=== PATIENT | male | born 1945 | race Caucasian/White ===

== ENCOUNTER 2017-07-23 23:34 | Inpatient (IN) | payer MEDICARE ==
[~2017-07-23] VITALS: Ht 165.1 cm; Wt 103.5 kg
[2017-07-24] MEDS ORDERED: ONDANSETRON HCL 4 MG/2 ML VIAL IV PUSH PRN (04:15)
[2017-07-24] MEDS ORDERED: MORPHINE SULFATE 2 MG/ML SYRINGE IV PUSH PRN (04:15)
[2017-07-24 08:00] VITALS: BP 135/73; PULSE 76; RESP 17; TEMP 98.6; O2SAT 94
[2017-07-24 09:11] LABS: AUTOMATED NEUTROPHIL # 9.9 TH/MM3 (1.8-7.7); BASOPHIL % 0.3 % (0.0-2.0); EOSINOPHIL % 0.2 % (0.0-4.0); HEMATOCRIT 27.6 % (39.0-51.0); HEMOGLOBIN 9.3 GM/DL (13.0-17.0); LYMPH % 6.3 % (9.0-44.0); LYMPHOCYTE # 0.8 TH/MM3 (1.0-4.8); MEAN CELL VOLUME 90.7 FL (80.0-100.0); MEAN CORPUSCULAR HEMOGLOBIN 30.4 PG (27.0-34.0); MEAN CORPUSCULAR HGB CONC 33.6 % (32.0-36.0); MEAN PLATELET VOLUME 7.2 FL (7.0-11.0); MONO % 16.3 % (0.0-8.0); MONOCYTE # 2.1 TH/MM3 (0-0.9); NEUT % 76.9 % (16.0-70.0); PLATELET COUNT 316 TH/MM3 (150-450); RED BLOOD COUNT 3.05 MIL/MM3 (4.50-5.90); WHITE BLOOD COUNT 12.9 TH/MM3 (4.0-11.0)
--- NOTE | 2017-07-24 09:16 | HHI.HP ---
HPI Service [facility] Hospitalists Primary Care Physician Edmund Sarmiento MD Admission Diagnosis Iliacus and psoas hematoma Chief Complaint: Right hip pain Travel History International Travel<30 Days: No Contact w/Intl Traveler <30 Da: No History of Present Illness Mr. Navarrete is a 71 y/o WM with hyperlipidemia, HTN, hx of CAD, hx of CVA on chronic anticoagulation with Coumadin, hypothyroidism. Pt was transferred from [facility] on 07/24/17 with a right iliacus and right psoas muscle hematoma. According to the pt and his the pt has complained of right hip pain for some time but more recently, within the last week or so, this has been significantly worsening. He reportedly had an outpt Xray of right hip reportedly fine. Last he had increased pain in the right hip and called ortho and was given a prescription for Hydrocodone which provided no relief. Pt went to the ED at [facility] on 07/19/17 and was reportedly given pain meds and sent home. Later that evening he complained of his right leg going numb. After that began he was trying to transfer from the bed side commode to the bed and he slid down the side of the bed to the floor. Pts noted that he started to develop bruising on the right flank after that fall. The pts pain increased in the right hip the following day and he went back to the ED at [facility] on 07/21/17. In the ED the pt was evaluated with MRI Lumbar Spine without contrast (07/21/17) which noted an abnormal exam, with the paraspinal signal alteration on the right side with involvement of the right iliacus muscle belly as well as the right psoas muscle belly nonspecific but possibly reflecting evolving active acute to subacute paraspinal abscesses, although the possibility of partial visualization of spontaneous evolving active to subacute retroperitoneal hematoma also a consideration from an imaging standpoint. Pt was admitted. CT Abd/Pelvis with IV Contrast (07/21/17) noted findings are consistent with a large right iliacus hemorrhage with a fluid /fluid level. No active extravasation is seen. There is extension into the retroperitoneum more on the right than the left and some extension into the groin and upper thigh. The iliacus hemorrhage displaces the right psoas muscle. There is some hemorrhage extending superiorly along the posterior border of the psoas muscle. Maximum cross-sectional measurement of the iliacus hemorrhage is 7.1 x 8.7cm with a craniocaudad dimension of 13.3cm, not including the groin component. His tells me that when he went back to the ED the second time his INR was reportedly 7. Pt reportedly received a transfusion of 4 units FFP and a couple units of PRBCs as his Hgb went down to 7.7 at [facility]. Pt Coumadin was increased to 5mg po daily in May 2017 for subtherapeutic INR. Prior to that he was on 5mg 4 days per week and 1/2 tablet 2 days per week. I do not have records yet from his hospitalization at [facility] but reportedly the attending physician discussed the case with Neurosurgery and General Surgery but no surgical intervention was recommended at that time. [facility] was contacted as it was felt that the pts neurological function in the RLE was being compromised and IR tried to drain the hematoma but reportedly was only able to get about 100cc and a drain remains in place. Pt was transferred to [facility] on 07/24/17 and consult placed to General Surgery. Pt is a poor historian. The majority of the history was obtained from the pts over the phone and in discussion with our overnight covering physician, Dr. Courtney. Review of Systems ROS Limitations: Poor Historian Constitutional: DENIES: Fever, Chills Eyes: DENIES: Vision loss Ears, nose, mouth, throat: DENIES: Hearing loss Respiratory: DENIES: Cough, Shortness of breath Cardiovascular: COMPLAINS OF: Lower Extremity Edema, DENIES: Chest pain Musculoskeletal: COMPLAINS OF: Joint pain Integumentary: COMPLAINS OF: Abnormal pigmentation, DENIES: Rash Neurologic: COMPLAINS OF: Localized weakness, Paresthesias, DENIES: Headache, Seizures, Speech Problems Psychiatric: DENIES: Confusion Past Family Social History Past Medical History Hx of CAD Hx seizure disorder which occurred after CVA in 1996 CVA in 1996 TIA about 5 years ago RLS Hypothyroidism HTN Hyperlipidemia Hx of MRSA [place] but has not been using CPAP Past Surgical History Bilateral TKA Right hip arthroplasty Shoulder surgery Reported Medications Temazepam 15 Mg Cap 15 Mg PO HS PRN Ropinirole 0.25 Mg Tab 0.25 Mg PO HS PRN Depakote ER (Divalproex Sodium) 250 Mg Ganesh 750 Mg PO BID Flonase Nasal [place] (Fluticasone Nasal [place]) 50 Mcg/Act [place] 50 Mcg EACH NARE BID [place] (Hydrocodone-Acetaminophen) 10-325 Mg Tab 1 Tab PO Q6H PRN Levothyroxine (Levothyroxine Sodium) 125 Mcg Tab 125 Mcg PO DAILY Lovastatin 40 Mg Tab 40 Mg PO DAILY Prednisone 10 Mg Tab 10 Mg PO BID Coumadin (Warfarin) 5 Mg Tab 5 Mg PO DAILY Allergies: Coded Allergies: acetaminophen (Unverified Adverse Reaction, Intermediate, nausea, agitation, 07/24/17) per transfer chart review oxycodone (Unverified Adverse Reaction, Intermediate, nausea, agitation, ) per transfer chart review diazepam (Unverified Adverse Reaction, Mild, agitation, 07/24/17) per transfer chart review Family History Noncontributory Social History Remote hx of tobacco use, smoked 1/2ppd x 10 years, quite 40 years ago Denies any alcohol or illicit drug use Pt lives in [facility] with his Pt is a retired building inspection engineer Physical Exam Physical Exam GENERAL: This is a well-nourished, well-developed patient, in no apparent distress. SKIN: Large area of ecchymosis on the right lower flank HEENT: Atraumatic. Normocephalic. No temporal or scalp tenderness. No scleral icterus. Airway patent. NECK: Trachea midline, supple, nontender. CARDIO: Regular. RESP: CTA bilaterally. No wheezes, rales, or rhonchi. ABD: +BS, soft, non-tender, nondistended. EXT: RLE 2+ edema from the foot to the hip, palpable pedal pulse bilaterally NEURO: Awake and alert. Cranial nerves II through XII intact. pt unable to move RLE, pt able to discern light touch sensation to bilateral LE. Pt with painful attempted movement of the LLE with passive motion. Normal speech. Laboratory Labs on 07/22/17 @ [facility] WBC count 7.1 Hgb 7.7/Hct 24.4 Platelet count 248 INR 1.8 PT 21.3 BUN [address] Abd/Pelvis with IV Contrast (07/21/17) @ [facility] Impression: - Findings are consistent with a large right iliacus hemorrhage with a fluid/ fluid level. No active extravasation is seen. There is extension into the retroperitoneum more on the right than the left and some extension into the groin and upper thigh. The iliacus hemorrhage displaces the right psoas muscle. There is some hemorrhage extending superiorly along the posterior border of the psoas muscle. Maximum cross-sectional measurement of the iliacus hemorrhage is 7.1 x 8.7cm with a craniocaudad dimension of 13.3cm, not including the groin component. No other collections - Gallstones MRI Lumbar Spine without contrast (07/21/17) @ [place] Impression: - Abnormal exam, with the paraspinal signal alteration on the right side with involvement of the right iliacus muscle belly as well as the right psoas muscle belly nonspecific but possibly reflecting evolving active acute to subacute paraspinal abscesses, although the possibility of partial visualization of spontaneous evolving active to subacute retroperitoneal hematoma also a consideration from an imaging standpoint. Underlying complex cystic nonspecific neoplastic process not highly suspected based on the current unenhanced MRI features. Cannot entirely exclude some early subtle changes of septic arthritis with regard to the hypertrophic asymmetric appearing right L4-L5 articular facet although the possibility of asymmetric advanced arthritic changes could also account for the unenhanced MRI appearance of the right L4-L5 articular facet. - Because the changes are incompletely visualized, especially with regard to the caudal extent of the involvement of the right iliacus muscle belly, further characterization recommended with follow-up CT or MRI of the abd/pelvis with contrast with no renal contraindications exist. - Short segment of at least moderate stenosis involving the T11-T12 disc space level. Moderate central canal stenosis with cord contour remodeling noted. The associated T2 hyperintense intramedullary signal is suspicious for underlying myelomalacia as described. Caprini VTE Risk Assessment Caprini VTE Risk Assessment: Mod/High Risk (score >= 2) VTE Pharm Contraindication: High risk for bleeding Caprini Risk Assessment Model Point Value = 1 Point Value = 2 Point Value = 3 Point Value = 5 Age 41-60 Minor surgery BMI > 25 kg/m2 Swollen legs Varicose veins or History of unexplained or recurrent spontaneous Oral contraceptives or hormone replacement Sepsis (< 1 month) Serious lung disease, including pneumonia (< 1 month) Abnormal pulmonary function Acute myocardial infarction Congestive heart failure (< 1 month) History of inflammatory bowel disease Medical patient at bed rest Age 61-74 Arthroscopic surgery Major open surgery (> 45 min) Laparoscopic surgery (> 45 min) Malignancy Confined to bed (> 72 hours) Immobilizing plaster cast Central venous access Age >= 75 History of VTE Family history of VTE Factor V Leiden Prothrombin [id number] Lupus anticoagulant Anticardiolipin antibodies Elevated serum homocysteine Heparin-induced thrombocytopenia Other congenital or acquired thrombophilia Stroke (< 1 month) Elective arthroplasty Hip, pelvis, or leg fracture Acute spinal cord injury (< 1 month) Prophylaxis Regimen Total Risk Factor Score Risk Level Prophylaxis Regimen 0-1 Low Early ambulation 2 Moderate Order ONE of the following: *Sequential Compression Device (SCD) *Heparin 5000 units SQ BID 3-4 Higher Order ONE of the following medications: *Heparin 5000 units SQ TID *Enoxaparin/Lovenox 40 mg SQ daily (WT < 150 kg, CrCl > 30 mL/min) *Enoxaparin/Lovenox 30 mg SQ daily (WT < 150 kg, CrCl > 10-29 mL/min) *Enoxaparin/Lovenox 30 mg SQ BID (WT < 150 kg, CrCl > 30 mL/min) AND/OR *Sequential Compression Device (SCD) 5 or more Highest Order ONE of the following medications: *Heparin 5000 units SQ TID (Preferred with Epidurals) *Enoxaparin/Lovenox 40 mg SQ daily (WT < 150 kg, CrCl > 30 mL/min) *Enoxaparin/Lovenox 30 mg SQ daily (WT < 150 kg, CrCl > 10-29 mL/min) *Enoxaparin/Lovenox 30 mg SQ BID (WT < 150 kg, CrCl > 30 mL/min) AND *Sequential Compression Device (SCD) Assessment and Plan Problem List: (1) Hematoma of right psoas region to anticoagulant therapy ICD Codes: S30.1XXA - Contusion of abdominal wall, initial encounter Status: Acute Plan: Right iliacus and right psoas muscle hematoma, likely secondary to supra- therapeutic INR - Pt is a 71 y/o WM with hyperlipidemia, HTN, hx of CAD, hx of CVA on chronic anticoagulation with Coumadin, hypothyroidism. - Pt was transferred from [facility] on 07/24/17 with a right iliacus and right psoas muscle hematoma. - Pt has been having increased right hip pain for approx 1 week and developed "numbness" to the RLE and suffered a fall from the bedside commode to the floor. - Pt was seen in the ED at [facility] on 07/21/17. Pt was evaluated with MRI Lumbar Spine without contrast (07/21/17) --> the paraspinal signal alteration on the right side with involvement of the right iliacus muscle belly as well as the right psoas muscle belly nonspecific but possibly reflecting evolving active acute to subacute paraspinal abscesses, although the possibility of partial visualization of spontaneous evolving active to subacute retroperitoneal hematoma also a consideration from an imaging standpoint. CT Abd/Pelvis with IV Contrast (07/21/17) --> findings are consistent with a large right iliacus hemorrhage with a fluid/fluid level. No active extravasation is seen. There is extension into the retroperitoneum more on the right than the left and some extension into the groin and upper thigh. The iliacus hemorrhage displaces the right psoas muscle. There is some hemorrhage extending superiorly along the posterior border of the psoas muscle. Maximum cross-sectional measurement of the iliacus hemorrhage is 7.1 x 8.7cm with a craniocaudad dimension of 13.3cm, not including the groin component. - Pts INR was reportedly 7 on 07/21 ( I do not have those records from [facility] at this time). - Pt reportedly received a transfusion of 4 units FFP and a couple units of PRBCs as his Hgb went down to 7.7 at [facility]. - Pt was transferred to [facility] on 07/24/17 as the pts attending physician at [facility] felt that the neurological function of the pts RLE was being compromised. IR tried to drain the hematoma but reportedly was only able to get about 100cc and a drain remains in place. - Consult placed to General Surgery at admission. Discussed the case with Dr. Andrews this morning, no surgical intervention planned at this time - Remove NPO status and start heart healthy diet - Repeat INR (07/24/17) is 1.3 - Repeat labs in AM - Consider repeat imaging of the abd/pelvis to re-evaluate since drain has been in place since 07/22 (according to the pts ) Bilateral LE weakness - Pt had MRI Lumbar spine at [facility] on 07/21/17, results reported above. - Consult Neurosurgery for input and recommendations Hx of CVA on chronic anticoagulation with Coumadin - Pt reportedly had a previous supra-therapeutic INR and received 4 units of FFP at [facility] - Pts reported that his Coumadin was increased to 5mg po daily in May 2017 for subtherapeutic INR. Prior to that he was on 5mg 4 days per week and 1/2 tablet 2 days per week. - Cont. to hold Coumadin - INR 1.3 on 07/24/17 Hypothyroidism - Cont. home meds Hyperlipidemia - Cont. home meds Hx of seizure disorder - Cont. Depakote ER 750mg po BID - Check Depakote level Chemical DVT prophylaxis contraindicated at this time due to hematoma, SCDs (2) HTN (hypertension) ICD Codes: I10 - Essential (primary) hypertension Status: Chronic (3) History of CVA (cerebrovascular accident) ICD Codes: Z86.73 - Personal history of transient ischemic attack (TIA), and cerebral infarction without residual deficits Status: Chronic (4) Hypothyroidism ICD Codes: E03.9 - Hypothyroidism, unspecified Status: Chronic (5) Hyperlipidemia ICD Codes: E78.5 - Hyperlipidemia, unspecified Status: Chronic (6) Hx of seizure disorder ICD Codes: Z86.69 - Personal history of other diseases of the nervous system and sense organs Status: Chronic Physician Certification 2 Midnight Certification Type: Admission for Inpatient Services Order for Inpatient Services The services are ordered in accordance with Medicare regulations or non- Medicare payer requirements, as applicable. In the case of services not specified as inpatient-only, they are appropriately provided as inpatient services in accordance with the 2-midnight benchmark. Estimated LOS (days): 3 3 days is the estimated time the patient will need to remain in the hospital, assuming treatment plan goals are met and no additional complications. Post-Hospital Plan: Not yet determined Problem Qualifiers (1) Hematoma of right psoas region to anticoagulant therapy: Qualified Codes: S30.1XXA - Contusion of abdominal wall, initial encounter Rosa Díza Jul 24, 2017 09:16 John Cheng MD Jul 24, 2017 16:53
[2017-07-24 09:19] LABS: INTERNATIONAL NORMALIZED RATIO 1.3 RATIO; PROTHROMBIN TIME - PATIENT 12.7 SEC (9.8-11.6)
[2017-07-24 09:33] LABS: ALBUMIN 2.4 GM/DL (3.4-5.0); ALT (GPT) 19 U/L (12-78); AST (GOT) 63 U/L (15-37); BICARBONATE 27.9 MEQ/L (21.0-32.0); BLOOD UREA NITROGEN 12 MG/DL (7-18); CALCIUM 8.6 MG/DL (8.5-10.1); CHLORIDE 101 MEQ/L (98-107); CREATININE 0.83 MG/DL (0.60-1.30); GLOMERULAR FILTRATION RATE 91 ML/MIN (>89); GLUCOSE,RANDOM 96 MG/DL (74-106); SODIUM (NA) 135 MEQ/L (136-145)
[2017-07-24 09:36] LABS: ALKALINE PHOSPHATASE 58 U/L (45-117); TOTAL BILIRUBIN ADULT 1.3 MG/DL (0.2-1.0); TOTAL PROTEIN 7.2 GM/DL (6.4-8.2)
[2017-07-24] MEDS ORDERED: FLUT1SPR5 EACH NARE (09:54)
[2017-07-24] MEDS ORDERED: PRED10 PO (09:54)
[2017-07-24] MEDS ORDERED: HYDR-3366 PO (09:54)
[2017-07-24] MEDS ORDERED: LEVO125T4 PO (09:54)
[2017-07-24] MEDS ORDERED: DIVA250ER PO (09:54)
[2017-07-24] MEDS ORDERED: LOVA40TA PO (09:54)
[2017-07-24] MEDS ORDERED: COUM5TAB PO (09:54)
[2017-07-24] MEDS ORDERED: ACETAMINOPHEN 325 MG TAB PO PRN (10:00)
[2017-07-24] MEDS ORDERED: ROPI0.25 PO (10:01)
[2017-07-24] MEDS ORDERED: TEMA15CA PO (10:01)
[2017-07-24 12:00] VITALS: BP 142/71; PULSE 96; RESP 18; TEMP 98; O2SAT 96
[2017-07-24] MEDS: ACETAMINOPHEN/HYDROcodone 325 MG/10 MG TAB PO PRN (12:48)
[2017-07-24] MEDS ORDERED: DIATRIZOATE MEGLUM/DIATRIZOATE SOD 9 ML CUP PO ONE (13:15)
[2017-07-24 16:00] VITALS: BP 141/77; PULSE 101; RESP 19; TEMP 99.3; O2SAT 96
--- NOTE | 2017-07-24 17:41 | RADRPT ---
EXAM DATE/TIME: 07/24/2017 16:57 [facility] COMPARISON: No previous studies available for comparison. INDICATIONS : Bilateral leg swelling. MEDICAL HISTORY : Hypothyroidism. Myocardial infarction. Arthritis. Basal cell carcinoma. Seizures. CVA. SURGICAL HISTORY : Orthopedic surgery, hip, bilateral knees and shoulder. ENCOUNTER: Initial ACUITY: 3 days PAIN SCORE: 4/10 LOCATION: Bilateral legs. TECHNIQUE: Venous ultrasound of the left and right leg was performed from the inguinal ligament to the proximal calf. Real-time, color Doppler and spectral tracing, compression and augmentation techniques were us ed. FINDINGS: RIGHT LEG: There is normal compressibility of the deep venous system from the inguinal region to the proximal ca lf. No echogenic clot is seen in the lumen of the common femoral, femoral, popliteal, and posterior tibial veins. There is a normal response of the venous system to proximal and distal augmentation an d respiration. Several prominent lymph nodes in the right groin measuring up to 2.5 cm. LEFT LEG: There is normal compressibility of the deep venous system from the inguinal region to the proximal ca lf. No echogenic clot is seen in the lumen of the common femoral, femoral, popliteal, and posterior tibial veins. There is a normal response of the venous system to proximal and distal augmentation an d respiration. CONCLUSION: 1. The study is negative for deep venous thrombosis bilateral lower extremity. Paul Thomas MD on July 24, 2017 at 17:37 Board Certified Radiologist. This report was verified electronically.
[2017-07-24] MEDS ORDERED: IOHEXOL 350 MG/ML 10 ML VIAL (for RAD DIAG) IVCONTRAST ONE (19:24)
--- NOTE | 2017-07-24 19:44 | RADRPT ---
EXAM DATE/TIME: 07/24/2017 19:16 [facility] COMPARISON: No previous studies available for comparison. INDICATIONS : Right iliacus and psoas hematoma. IV CONTRAST: 96 cc Omnipaque 350 (iohexol) IV ORAL CONTRAST: No oral contrast ingested. RADIATION DOSE: 16.44 CTDIvol (mGy) MEDICAL HISTORY : Seizures. Cardiovascular disease SURGICAL HISTORY : None. ENCOUNTER: Initial ACUITY: 1 day PAIN SCALE: 4/10 LOCATION: Bilateral legs TECHNIQUE: Volumetric scanning of the abdomen and pelvis was performed. Using automated exposure control and ad justment of the mA and/or kV according to patient size, radiation dose was kept as low as reasonably achievable to obtain optimal diagnostic quality images. DICOM format image data is available electro nically for review and comparison. FINDINGS: Lung bases are clear.. Mild compensated cardiomegaly Liver is unremarkable Multiple gallstones Spleen, pancreas, adrenals unremarkable Small bilateral renal cysts Drainage catheter in the right iliac is in the center of the mass or hematoma. Mild induration in the ilipsoas on the right leg obscured by artifact. Moderate degenerative changes in the lumbar spine. CONCLUSION: Drainage catheter in the right iliac region.. No residual fluid. Izaiah Jaramillo MD FACR on July 24, 2017 at 19:37 Board Certified Radiologist. This report was verified electronically.
[2017-07-24 20:00] VITALS: BP 129/74; PULSE 89; RESP 20; TEMP 98.1; O2SAT 96
[2017-07-24] MEDS: FLUTICASONE PROPIONATE 50 MCG/ACT 16 GM NASAL SPRAY EACH NARE SCH (21:00)
--- NOTE | 2017-07-24 21:13 | PD.CONS ---
HPI Service Neurosurgery Consult Requested By Medicine service Reason for Consult Psoas hematoma. Lower extremity paresis Primary Care Physician Edmund Sarmiento MD History of Present Illness 71-year-old male transferred from [facility] with right iliopsoas hematoma. Patient apparently has had significant progression of right hip pain in the past 2 weeks. Approximate 10 days ago he noted onset of numbness in the right lower extremity with also apparently some weakness developing. He was seen in the emergency room on 07/21/17 with MRI revealing findings consistent with right iliopsoas hematoma versus abscess, as well as T11-12 stenosis with signal intensity changes within the cord. Mr. oquendo states that approximately a week ago, he developed progressive pain numbness and weakness in the left lower extremity. He states that he has not been able to walk for approximately a week. He has not been able to lift his left leg off the bed for 5-7 days. He complains of severe stinging-burning type pain in his feet and ankles. Subsequent admission with CT scan abdomen and pelvis revealing large right iliopsoas hematoma with retroperitoneal extension. Patient has been on Coumadin for CAD, previous CVA. Received PRBC and FFP at [facility]. The case was apparently discussed with neurosurgery at [facility] with recommendations for non-operative management. The patient was subsequently transferred to [facility] for neurosurgery evaluation. Review of Systems Constitutional: DENIES: Fever Eyes: DENIES: Blurred vision Ears, nose, mouth, throat: DENIES: Vertigo Respiratory: DENIES: Cough, Shortness of breath Cardiovascular: DENIES: Chest pain, Palpitations Gastrointestinal: DENIES: Abdominal pain, Nausea, Vomiting Musculoskeletal: COMPLAINS OF: Joint pain, Muscle aches, Joint Swelling, Back pain Hematologic/lymphatic: DENIES: Bruising Neurologic: COMPLAINS OF: Abnormal gait, Localized weakness, Paresthesias, DENIES: Headache Past Family Social History Allergies: Coded Allergies: acetaminophen (Unverified Adverse Reaction, Intermediate, nausea, agitation, 07/24/17) per transfer chart review oxycodone (Unverified Adverse Reaction, Intermediate, nausea, agitation, ) per transfer chart review diazepam (Unverified Adverse Reaction, Mild, agitation, 07/24/17) per transfer chart review Past Medical History Coronary artery disease CVA approximately 10 years ago TIA 5 years ago Hypertension Dyslipidemia Hypothyroidism Seizure disorder related to CVA Past Surgical History Right hip arthroplasty Bilateral knee arthroplasty Shoulder surgery Reported Medications Reported Meds & Active Scripts Active Reported Temazepam 15 Mg Cap 15 Mg PO HS PRN Ropinirole 0.25 Mg Tab 0.25 Mg PO HS PRN Depakote ER (Divalproex Sodium) 250 Mg Ganesh 750 Mg PO BID Flonase Nasal [place] (Fluticasone Nasal [place]) 50 Mcg/Act [place] 50 Mcg EACH NARE BID [place] (Hydrocodone-Acetaminophen) 10-325 Mg Tab 1 Tab PO Q6H PRN Levothyroxine (Levothyroxine Sodium) 125 Mcg Tab 125 Mcg PO DAILY Lovastatin 40 Mg Tab 40 Mg PO DAILY Prednisone 10 Mg Tab 10 Mg PO BID Coumadin (Warfarin) 5 Mg Tab 5 Mg PO DAILY Family History Negative cancer diabetes neurologic disorders Social History Quit smoking approximately 4 years ago. No significant alcohol use Physical Exam Vital Signs Vital Signs Date Time Temp Pulse Resp B/P (MAP) Pulse Ox O2 Delivery O2 Flow Rate FiO2 07/24/17 16:00 99.3 101 19 141/77 (98) 96 07/24/17 12:00 98.0 96 18 142/71 (94) 96 07/24/17 08:00 98.6 76 17 135/73 (93) 94 Physical Exam GENERAL: This is a well-nourished, well-developed patient, appears somewhat uncomfortable during the examination. SKIN: No abrasions, contusion, rash noted. Skin warm and dry. HEAD: Atraumatic. Normocephalic. No temporal or scalp tenderness. EYES: Sclerae are clear and nonicteric ENT: No facial edema or ecchymosis. No periorbital edema. No CSF otorrhea or rhinorrhea. No palpable facial fracture or deformity. NECK: Trachea midline. No cervical spine tenderness. CARDIOVASCULAR: Regular rate and rhythm without murmurs, gallops, or rubs. RESPIRATORY: Clear to auscultation. Breath sounds equal bilaterally. No wheezes , rales, or rhonchi. GASTROINTESTINAL: Abdomen soft, non-tender, nondistended. No hepato-splenomegaly , or palpable masses. No guarding. MUSCULOSKELETAL: Mild low lumbar paraspinous tenderness. Mild to moderate right posterior lateral hip tenderness. Moderate right greater than left distal lower extremity edema without cyanosis. Posterior tibial pulse 2+ bilateral NEUROLOGICAL: Awake and alert Oriented X 3 Speech is clear Conversant and appropriate Follow simple commands well Answers questions appropriately Reasonable judgment and insight Recent and remote memory are intact No evidence of anxiety or depression Pupils are equal and reactive to accommodation. Extra-ocular movements, visual jc to confrontation, facial sensorimotor, tongue, palate, sternocleidomastoid testing, hearing to finger rub testing, and bilateral shoulder shrug are all intact. Sensation is intact to light touch in the upper extremities as well as across the chest and abdomen. Sensation is moderately diminished in the right and left thigh and markedly diminished in the right and left ankle and foot, but not totally absent. He has rather severe dysesthetic pain to light touch as well as some allodynia over the distal bilateral calf and foot and ankle. Strength normal major flexion and extension groups as well as hand intrinsics in the upper extremities. Motor function in the lower extremities is diminished to 0/5 right and 1- 2/5 left iliopsoas, one right and 2 left quadriceps, with 2/5 bilateral tibialis anterior, gastrocsoleus, extensor hallucis longus and flexor digitorum. Lakshmi's absent bilaterally No ankle clonus Plantar response is neutral on the left, moderately extensor with quadriceps contraction on the left. Fine motor movements intact upper extremities Laboratory Laboratory Tests Test 07/24/17 08:53 White Blood Count 12.9 Red Blood Count 3.05 Hemoglobin 9.3 Hematocrit 27.6 Mean Corpuscular Volume 90.7 Mean Corpuscular Hemoglobin 30.4 Mean Corpuscular Hemoglobin Concent 33.6 Red Cell Distribution Width 14.0 Platelet Count 316 Mean Platelet Volume 7.2 Neutrophils (%) (Auto) 76.9 Lymphocytes (%) (Auto) 6.3 Monocytes (%) (Auto) 16.3 Eosinophils (%) (Auto) 0.2 Basophils (%) (Auto) 0.3 Neutrophils # (Auto) 9.9 Lymphocytes # (Auto) 0.8 Monocytes # (Auto) 2.1 Eosinophils # (Auto) 0.0 Basophils # (Auto) 0.0 CBC Comment DIFF FINAL Differential Comment Prothrombin Time 12.7 Prothromb Time International Ratio 1.3 Activated Partial Thromboplast Time 37.3 Blood Urea Nitrogen 12 Creatinine 0.83 Random Glucose 96 Total Protein 7.2 Albumin 2.4 Calcium Level 8.6 Alkaline Phosphatase 58 Aspartate Amino Transf (AST/SGOT) 63 Alanine Aminotransferase (ALT/SGPT) 19 Total Bilirubin 1.3 Sodium Level 135 Potassium Level 3.8 Chloride Level 101 Carbon Dioxide Level 27.9 Anion Gap 6 Estimat Glomerular Filtration Rate 91 Valproic Acid (Depakene) Level 61 Result Diagram: 07/24/17 0853 07/24/17 0853 Imaging Last Impressions Lower Extremity Ultrasound 07/24/17 0000 Signed Impressions: Service Date/Time: Monday, July 24, 2017 16:57 - CONCLUSION: 1. The study is negative for deep venous thrombosis bilateral lower extremity. Paul Thomas MD Abdomen/Pelvis CT 07/24/17 0000 Signed Impressions: Service Date/Time: Monday, July 24, 2017 19:16 - CONCLUSION: Drainage catheter in the right iliac region.. No residual fluid. Izaiah Jaramillo MD FACR Assessment and Plan Assessment and Plan Impression: 1. Right iliopsoas hematoma with retroperitoneal extension. Probable right lumbar sacral plexopathy. Status post CT-guided placement right iliac drainage catheter. 2. Severe thoracic myelopathy with signal intensity changes within the cord at the T11-12 level. His overall presentation with bilateral severe paraparesis, positive dysesthetic pain and long tract findings in the bilateral lower extremities is most consistent with myelopathy as a primary etiology for his lower extremity sensory motor dysfunction. Recommendations: Findings were discussed at length with the patient. Imaging studies were explained to him. Options of conservative treatment versus surgical intervention for the thoracic myelopathy has been discussed. He wishes to proceed with surgical intervention for T11-12 decompressive laminectomy. The procedure, risks, possible complications and anticipated recovery time have been discussed. He understands that there is no guarantee regarding the outcome of the surgical procedure given the significant spinal cord compression and signal intensity changes noted on MRI. An MRI of the cervical and entire thoracic spine will be obtained preoperatively to determine if there are any other areas of significant cord compression. Discussed with medicine service Reynaldo Berkowitz MD Jul 24, 2017 21:13
[2017-07-24] MEDS: DIVALPROEX SODIUM E.R. 250 MG TAB PO SCH (23:54)
[2017-07-25] VITALS: BP 120/65; PULSE 92; RESP 20; TEMP 99.1; O2SAT 96
[2017-07-25] MEDS: LEVOTHYROXINE SODIUM 125 MCG TAB PO SCH (06:10)
[2017-07-25 06:45] LABS: AUTOMATED NEUTROPHIL # 9.6 TH/MM3 (1.8-7.7); BASOPHIL % 0.3 % (0.0-2.0); EOSINOPHIL # 0.1 TH/MM3 (0-0.4); EOSINOPHIL % 0.5 % (0.0-4.0); HEMATOCRIT 27.9 % (39.0-51.0); HEMOGLOBIN 9.5 GM/DL (13.0-17.0); LYMPH % 8.3 % (9.0-44.0); MEAN CELL VOLUME 90.7 FL (80.0-100.0); MEAN CORPUSCULAR HEMOGLOBIN 30.9 PG (27.0-34.0); MONO % 13.9 % (0.0-8.0); MONOCYTE # 1.7 TH/MM3 (0-0.9); PLATELET COUNT 331 TH/MM3 (150-450); RED BLOOD COUNT 3.08 MIL/MM3 (4.50-5.90); RED CELL DISTRIBUTION WIDTH 14.3 % (11.6-17.2); WHITE BLOOD COUNT 12.4 TH/MM3 (4.0-11.0)
[2017-07-25 06:53] LABS: INTERNATIONAL NORMALIZED RATIO 1.2 RATIO; PROTHROMBIN TIME - PATIENT 12.2 SEC (9.8-11.6)
[2017-07-25 07:06] LABS: ALBUMIN 2.1 GM/DL (3.4-5.0); AST (GOT) 66 U/L (15-37); BICARBONATE 26.4 MEQ/L (21.0-32.0); BLOOD UREA NITROGEN 14 MG/DL (7-18); CALCIUM 8.8 MG/DL (8.5-10.1); CHLORIDE 101 MEQ/L (98-107); CREATININE 0.68 MG/DL (0.60-1.30); GLOMERULAR FILTRATION RATE 114 ML/MIN (>89); GLUCOSE,RANDOM 91 MG/DL (74-106); MAGNESIUM 2.1 MG/DL (1.5-2.5); SODIUM (NA) 135 MEQ/L (136-145)
[2017-07-25 07:09] LABS: ALKALINE PHOSPHATASE 663 U/L (45-117); ALT (GPT) 19 U/L (12-78); TOTAL BILIRUBIN ADULT 1.5 MG/DL (0.2-1.0); TOTAL PROTEIN 7.2 GM/DL (6.4-8.2)
[2017-07-25 08:00] VITALS: BP 138/78; PULSE 92; RESP 17; TEMP 97.9; O2SAT 95
--- NOTE | 2017-07-25 08:58 | HHI.PR ---
Subjective Remarks Pt moving LLE slightly more today but still unable to lift it off the bed actively (unclear if this is just pain related or weakness) Pt moves his toes on the RLE Pt had 10mL of bloody drainage from the right flank drain overnight. Objective Vitals Vital Signs Date Time Temp Pulse Resp B/P (MAP) Pulse Ox O2 Delivery O2 Flow Rate FiO2 07/25/17 00:00 99.1 92 20 120/65 (83) 96 07/24/17 20:00 98.1 89 20 129/74 (92) 96 07/24/17 16:00 99.3 101 19 141/77 (98) 96 07/24/17 12:00 98.0 96 18 142/71 (94) 96 Result Diagram: 07/25/17 0558 07/25/17 0558 Other Results Laboratory Tests Test 07/24/17 08:53 07/25/17 05:58 White Blood Count 12.9 TH/MM3 12.4 TH/MM3 Red Blood Count 3.05 MIL/MM3 3.08 MIL/MM3 Hemoglobin 9.3 GM/DL 9.5 GM/DL Hematocrit 27.6 % 27.9 % Mean Corpuscular Volume 90.7 FL 90.7 FL Mean Corpuscular Hemoglobin 30.4 PG 30.9 PG Mean Corpuscular Hemoglobin Concent 33.6 % 34.0 % Red Cell Distribution Width 14.0 % 14.3 % Platelet Count 316 TH/MM3 331 TH/MM3 Mean Platelet Volume 7.2 FL 7.0 FL Neutrophils (%) (Auto) 76.9 % 77.0 % Lymphocytes (%) (Auto) 6.3 % 8.3 % Monocytes (%) (Auto) 16.3 % 13.9 % Eosinophils (%) (Auto) 0.2 % 0.5 % Basophils (%) (Auto) 0.3 % 0.3 % Neutrophils # (Auto) 9.9 TH/MM3 9.6 TH/MM3 Lymphocytes # (Auto) 0.8 TH/MM3 1.0 TH/MM3 Monocytes # (Auto) 2.1 TH/MM3 1.7 TH/MM3 Eosinophils # (Auto) 0.0 TH/MM3 0.1 TH/MM3 Basophils # (Auto) 0.0 TH/MM3 0.0 TH/MM3 CBC Comment DIFF FINAL DIFF FINAL Differential Comment Prothrombin Time 12.7 SEC 12.2 SEC Prothromb Time International Ratio 1.3 RATIO 1.2 RATIO Activated Partial Thromboplast Time 37.3 SEC Blood Urea Nitrogen 12 MG/DL 14 MG/DL Creatinine 0.83 MG/DL 0.68 MG/DL Random Glucose 96 MG/DL 91 MG/DL Total Protein 7.2 GM/DL 7.2 GM/DL Albumin 2.4 GM/DL 2.1 GM/DL Calcium Level 8.6 MG/DL 8.8 MG/DL Alkaline Phosphatase 58 U/L 663 U/L Aspartate Amino Transf (AST/SGOT) 63 U/L 66 U/L Alanine Aminotransferase (ALT/SGPT) 19 U/L 19 U/L Total Bilirubin 1.3 MG/DL 1.5 MG/DL Sodium Level 135 MEQ/L 135 MEQ/L Potassium Level 3.8 MEQ/L 3.9 MEQ/L Chloride Level 101 MEQ/L 101 MEQ/L Carbon Dioxide Level 27.9 MEQ/L 26.4 MEQ/L Anion Gap 6 MEQ/L 8 MEQ/L Estimat Glomerular Filtration Rate 91 ML/MIN 114 ML/MIN Valproic Acid (Depakene) Level 61 MCG/ML Magnesium Level 2.1 MG/DL Imaging Last Impressions Lower Extremity Ultrasound 07/24/17 0000 Signed Impressions: Service Date/Time: Monday, July 24, 2017 16:57 - CONCLUSION: 1. The study is negative for deep venous thrombosis bilateral lower extremity. Paul Thomas MD Abdomen/Pelvis CT 07/24/17 0000 Signed Impressions: Service Date/Time: Monday, July 24, 2017 19:16 - CONCLUSION: Drainage catheter in the right iliac region.. No residual fluid. Izaiah Jaramillo MD FACR CT Abd/Pelvis with IV Contrast (07/21/17) @ [place] Impression: - Findings are consistent with a large right iliacus hemorrhage with a fluid/ fluid level. No active extravasation is seen. There is extension into the retroperitoneum more on the right than the left and some extension into the groin and upper thigh. The iliacus hemorrhage displaces the right psoas muscle. There is some hemorrhage extending superiorly along the posterior border of the psoas muscle. Maximum cross-sectional measurement of the iliacus hemorrhage is 7.1 x 8.7cm with a craniocaudad dimension of 13.3cm, not including the groin component. No other collections - Gallstones MRI Lumbar Spine without contrast (07/21/17) @ [facility] Impression: - Abnormal exam, with the paraspinal signal alteration on the right side with involvement of the right iliacus muscle belly as well as the right psoas muscle belly nonspecific but possibly reflecting evolving active acute to subacute paraspinal abscesses, although the possibility of partial visualization of spontaneous evolving active to subacute retroperitoneal hematoma also a consideration from an imaging standpoint. Underlying complex cystic nonspecific neoplastic process not highly suspected based on the current unenhanced MRI features. Cannot entirely exclude some early subtle changes of septic arthritis with regard to the hypertrophic asymmetric appearing right L4-L5 articular facet although the possibility of asymmetric advanced arthritic changes could also account for the unenhanced MRI appearance of the right L4-L5 articular facet. - Because the changes are incompletely visualized, especially with regard to the caudal extent of the involvement of the right iliacus muscle belly, further characterization recommended with follow-up CT or MRI of the abd/pelvis with contrast with no renal contraindications exist. - Short segment of at least moderate stenosis involving the T11-T12 disc space level. Moderate central canal stenosis with cord contour remodeling noted. The associated T2 hyperintense intramedullary signal is suspicious for underlying myelomalacia as described. Objective Remarks GENERAL: This is a well-nourished, well-developed patient, in no apparent distress. SKIN: Large area of ecchymosis on the right lower flank CARDIO: Regular. RESP: CTA bilaterally. No wheezes, rales, or rhonchi. ABD: +BS, soft, non-tender, nondistended. EXT: RLE 2+ edema from the foot to the hip, palpable pedal pulse bilaterally NEURO: Pt unable to move RLE but can wiggle his toes, pt able to discern light touch sensation to bilateral LE. Pt with painful attempted movement of the LLE with passive motion. A/P Problem List: (1) Hematoma of right psoas region to anticoagulant therapy ICD Codes: S30.1XXA - Contusion of abdominal wall, initial encounter Status: Acute Plan: Right iliacus and right psoas muscle hematoma, likely secondary to supra- therapeutic INR - Pt is a 71 y/o WM with hyperlipidemia, HTN, hx of CAD, hx of CVA on chronic anticoagulation with Coumadin, hypothyroidism. - Pt was transferred from [facility] on 07/24/17 with a right iliopsoas muscle hematoma. - Pt has been having increased right hip pain for approx 1 week and developed "numbness" to the RLE and suffered a fall from the bedside commode to the floor. - Pt was seen in the ED at [facility] on 07/21/17. Pt was evaluated with MRI Lumbar Spine without contrast (07/21/17) --> the paraspinal signal alteration on the right side with involvement of the right iliacus muscle belly as well as the right psoas muscle belly nonspecific but possibly reflecting evolving active acute to subacute paraspinal abscesses, although the possibility of partial visualization of spontaneous evolving active to subacute retroperitoneal hematoma also a consideration from an imaging standpoint. CT Abd/Pelvis with IV Contrast (07/21/17) --> findings are consistent with a large right iliacus hemorrhage with a fluid/fluid level. No active extravasation is seen. There is extension into the retroperitoneum more on the right than the left and some extension into the groin and upper thigh. The iliacus hemorrhage displaces the right psoas muscle. There is some hemorrhage extending superiorly along the posterior border of the psoas muscle. Maximum cross-sectional measurement of the iliacus hemorrhage is 7.1 x 8.7cm with a craniocaudad dimension of 13.3cm, not including the groin component. - Pts INR was reportedly 7 on 07/21 (I do not have those records from [facility] at this time). - Pt reportedly received a transfusion of 4 units FFP and a couple units of PRBCs as his Hgb went down to 7.7 at [facility]. - Pt was transferred to [facility] on 07/24/17 as the pts attending physician at [facility] felt that the neurological function of the pts RLE was being compromised and IR tried to drain the hematoma but reportedly was only able to get about 100cc and a drain remains in place. - Consult placed to General Surgery at admission. Discussed the case with Dr. Andrews this morning, no surgical intervention planned at this time - Repeat CT Abd/pelvis with IV Contrast (07/24/17) --> Drainage catheter in the right iliac region in the center of the mass or hematoma. No residual fluid. - Bilateral LE Doppler US (07/24/17) --> Negative for DVT - Repeat INR (07/24/17) is 1.3 - Discussed the case with Dr. Andrews on 07/25/17 and we will defer drain removal to him and his recommendations. Bilateral LE weakness - Pt had MRI Lumbar spine at [facility] on 07/21/17, results reported above. - Appreciate consult from Neurosurgery. Case discussed with Dr. Berkowitz on 07/25/17 and he reviewed MRI images from [facility] and reports concern for T11-T12 cord compression and possible infarction. - Pt planned for surgical intervention later today as he did eat breakfast this morning. Elevated LFTs - Etiology unclear - Pt with noted gallstones on CT scan - AlkPhos increased significantly from 52 to 668 - Consider Liver US Hx of CVA on chronic anticoagulation with Coumadin - Pt reportedly had a previous supra-therapeutic INR and received 4 units of FFP at [facility] - Pts reported that his Coumadin was increased to 5mg po daily in May 2017 for subtherapeutic INR. Prior to that he was on 5mg 4 days per week and 1/2 tablet 2 days per week. - Cont. to hold Coumadin - INR 1.3 on 07/24/17 Hypothyroidism - Cont. home meds Hyperlipidemia - Cont. home meds Hx of seizure disorder - Cont. Depakote ER 750mg po BID - Check Depakote level Chemical DVT prophylaxis contraindicated at this time due to hematoma, SCDs (2) HTN (hypertension) ICD Codes: I10 - Essential (primary) hypertension Status: Chronic (3) History of CVA (cerebrovascular accident) ICD Codes: Z86.73 - Personal history of transient ischemic attack (TIA), and cerebral infarction without residual deficits Status: Chronic (4) Hypothyroidism ICD Codes: E03.9 - Hypothyroidism, unspecified Status: Chronic (5) Hyperlipidemia ICD Codes: E78.5 - Hyperlipidemia, unspecified Status: Chronic (6) Hx of seizure disorder ICD Codes: Z86.69 - Personal history of other diseases of the nervous system and sense organs Status: Chronic Assessment and Plan Patient examined. Assessment and plan formulated with Rosa Díaz PA-C. I agree with the above. discussed with Dr Berkowitz and Dr Darryl Berkowitz reviewed outpt MRI and believes the patient has stenosis and cord compression at t11/12 with possible central cord infarction planning to take to OR for pressure relief. Spoke with Dr Andrews. he will plan on removing the psoas muscle drain. Problem Qualifiers (1) Hematoma of right psoas region to anticoagulant therapy: Qualified Codes: S30.1XXA - Contusion of abdominal wall, initial encounter Rosa Díaz Jul 25, 2017 08:58 John Cheng MD Jul 25, 2017 11:00
[2017-07-25] MEDS: FLUTICASONE PROPIONATE 50 MCG/ACT 16 GM NASAL SPRAY EACH NARE SCH ×2 (09:00→21:00)
[2017-07-25] MEDS: PRAVASTATIN SOD 40 MG TAB PO SCH (09:17)
[2017-07-25] MEDS: DIVALPROEX SODIUM E.R. 250 MG TAB PO SCH ×2 (09:17→22:14)
[2017-07-25] MEDS ORDERED: SODIUM CHLORIDE 23.4% INJ 188 MEQ in SODIUM CHLOR 0.9% 1000 ML INJ 1,000 ML IV SCH (09:45)
[2017-07-25] MEDS ORDERED: ACETAMINOPHEN 1000 MG/100 ML 100 ML IV ONE (10:35)
[2017-07-25 12:00] VITALS: BP 124/73; PULSE 76; RESP 16; TEMP 98.2; O2SAT 95
[2017-07-25] MEDS ORDERED: LIDOCAINE HCL 1% PF 5 ML SYRINGE OTHER ONE (12:00)
[2017-07-25] MEDS ORDERED: PROPOFOL 200 MG/20 ML AMP IV ONE (12:00)
[2017-07-25] MEDS ORDERED: NORMOSOL R INJ 1,000 ML IV ONE (12:00)
[2017-07-25] MEDS ORDERED: LABETALOL HCL 100 MG/20 ML VIAL IV ONE (12:00)
[2017-07-25] MEDS ORDERED: PHENYLEPHRINE HCL 10 MG/ML VIAL IV ONE (12:00)
[2017-07-25] MEDS ORDERED: ROCURONIUM INJ 50 MG/5 ML SYRINGE IV PUSH ONE (12:00)
[2017-07-25] MEDS ORDERED: SODIUM CHLORID 0.9% 500 ML INJ 500 ML IV ONE (12:00)
[2017-07-25] MEDS ORDERED: PHENYLEPH/NS 1000 MCG/10 ML SYR IV ONE (12:00)
[2017-07-25] MEDS ORDERED: ePHEDrine/NS 25 MG/5 ML SYRINGE IV ONE (12:00)
[2017-07-25] MEDS ORDERED: SODIUM CHLOR 0.9% 250 ML INJ 250 ML IV ONE (12:00)
[2017-07-25] MEDS ORDERED: PROPOFOL 500 MG/50 ML INJ 100 ML ONE (13:01)
--- NOTE | 2017-07-25 14:00 | RADRPT ---
EXAM DATE/TIME: 07/25/2017 13:13 [place] COMPARISON: No previous studies available for comparison. INDICATIONS : Myelopathy. Numbness and tingling in right leg. MEDICAL HISTORY : Hypertension. Seizures. SURGICAL HISTORY : Bilateral knee, right hip, urolift and bilateral shoulder. ENCOUNTER: Initial ACUITY: 2 day PAIN SCORE: 0/10 LOCATION: Back. TECHNIQUE: Multiplanar multisequence MRI of the thoracic spine was performed. FINDINGS: Sagittal T1 and T2-weighted imaging through the thoracic spine is provided. The sagittal imaging demo nstrates dyskinesia, degenerated disc throughout the thoracic spine. No significant abnormal marrow s ignal is seen within the vertebral bodies. No significant abnormal signal is seen within the thoracic cord. Axial imaging through the disc spaces is provided. These again demonstrate scattered moderate degener ative changes. The most significant abnormality is at the T11/T12 level. There is broad-based disc bulge combined wi th osteophytic ridging and degenerative facet arthritis. There is facet and ligamentous hypertrophy. These changes result in a moderate degree of spinal stenosis and bilateral foraminal narrowing. There do appear to be mild edematous changes within the cord across this level. CONCLUSION: 1. Spinal stenosis at the T11/T12 level as described above. There do appear to be some mild edematous changes within the cord across this level. 2. Scattered degenerative changes throughout the remainder of the thoracic spine. 3. No acute compression fracture identified. Chas Jaramillo MD on July 25, 2017 at 13:54 Board Certified Radiologist. This report was verified electronically.
--- NOTE | 2017-07-25 14:12 | RADRPT ---
EXAM DATE/TIME: 07/25/2017 13:13 [facility] COMPARISON: No previous studies available for comparison. INDICATIONS : Myelopathy. Numbness and tingling in right leg. MEDICAL HISTORY : Hypertension. Seizures. SURGICAL HISTORY : Bilateral knee, right hip, urolift and bilateral shoulder. ENCOUNTER: Initial ACUITY: 2 day PAIN SCORE: 0/10 LOCATION: Back. TECHNIQUE: Multiplanar, multisequence MRI examination of the cervical spine was performed. FINDINGS: Sagittal T1, T2 and inversion recovery images show severe multilevel degenerative disease throughout the cervical spine with loss of disc height at every cervical level, most severe from C3-4 through C7 -T1. Near [id number] articulation at C4-5, C5-6 and C6-7 with associated uncovertebral ridging. The re is some degree of spinal stenosis at C4-5 and C5-6 with possibly an element of cord compression at the C5-6 level. Vertebral body heights are maintained without fracture. There is a grade 1 retrolist hesis C4 on 5 and C5 on 6 probably due to facet degeneration. No obvious cord edema. Posterior fossa is radiographically intact C2-C3: Bilateral foraminal narrowing predominantly due to facet hypertrophy which appears severe enough to c ompromise both C3 nerve roots. Spinal canal is adequate C3-C4: Bilateral foraminal narrowing, left worse than right. Again, predominantly due to facet hypertrophy. This appears again to not compromise both C4 nerve roots. Spinal canal is adequate C4-C5: Some uncovertebral ridging and facet hypertrophy narrows both neural foramina. This appears severe le ft compromise both C5 nerve roots. Spinal canal is adequate C5-C6: Uncovertebral ridging with bilateral facet hypertrophy. Significant narrowing of both neural foramina and the spinal canal with probable compromise of the cord at this level as well as both C6 nerve pattie ts. C6-C7: Uncovertebral ridging with narrowing of both neural foramina, left greater than right. Spinal canal i s adequate. I believe the right neural foramen remains adequate there may be compromise of the left C 7 nerve root. C7-T1: Bilateral foraminal narrowing, left greater than right. This may be severe enough to compromise the l eft C8 nerve root. Spinal canal and right neural foramina are adequate CONCLUSION: 1. Extensive degenerative disc disease through out the cervical spine. Marked loss of disc height thr oughout with grade 1 retrolisthesis of C4 on 5 and C5 on 6. 2. Spinal stenosis at the C5-6 level appears severe enough to compromise the cord. Spinal canal is ad equate at all remaining levels. 3. In addition, there is foraminal narrowing which may be severe enough to compromise bilateral C3, b ilateral C4 of the bilateral C5, bilateral C6, left C7 and left C8 nerve roots. Ancelmo Villalpando MD on July 25, 2017 at 14:00 Board Certified Radiologist. This report was verified electronically.
[2017-07-25] MEDS ORDERED: METOPROLOL TARTRATE 25 MG TAB PO PRN (15:00)
[2017-07-25] MEDS ORDERED: CHLORHEXIDINE GLUCONATE 2 % 1 PACK (2 CLOTHS) TOPICAL PRN (15:00)
[2017-07-25] MEDS ORDERED: INSULIN HUMAN REGULAR 1,000 UNITS/10 ML VIAL SQ PRN (15:00)
[2017-07-25] MEDS ORDERED: LACTATED RINGER'S 1000 ML IV PRN (15:00)
[2017-07-25] MEDS ORDERED: SODIUM CHLORID 0.9% 500 ML IV PRN (15:00)
[2017-07-25] MEDS ORDERED: POVIDONE IODINE 5% (ANTISEPSIS KIT) 4 APPLICATIONS EACH NARE PRN (15:00)
[2017-07-25] MEDS ORDERED: LIDOCAINE 1%/EPINEPHrine 1:100,000 SOLN 30 ML VIAL ONE (15:48)
[2017-07-25] MEDS ORDERED: GELFOAM SIZE 100 ONE (15:48)
[2017-07-25] MEDS ORDERED: THROMBIN (TOPICAL) 5,000 UNIT VIAL ONE (15:48)
[2017-07-25] MEDS ORDERED: GENTAMICIN SULFATE 80 MG/2 ML VIAL ONE (15:48)
[2017-07-25] MEDS ORDERED: ceFAZolin INJ 1,000 MG VIAL ONE (15:49)
[2017-07-25] MEDS ORDERED: BUPIVACAINE LIPOSOME PF 1.3% 20 ML VIAL ONE (17:24)
[2017-07-25] MEDS ORDERED: BUPIVACAINE LIPOSOME PF 1.3% 20 ML VIAL INFIL ONE (19:02)
[2017-07-25] MEDS ORDERED: DO NOT ADM ANY ANTICOAGULANT DRUGS PRN (20:09)
[2017-07-25] MEDS: D5-NS + KCL 20 MEQ INJ 1,000 ML IV SCH (20:10)
--- NOTE | 2017-07-25 20:13 | EKG ---
Date Performed: 07/25/2017 Time Performed: 14:48:32 PTAGE: 71 years EKG: Sinus rhythm WITH OCCASIONAL VENTRICULAR PREMATURE COMPLEXES MINIMAL VOLTAGE CRITERIA FOR LVH, CONSIDER NORMAL VA RIANT POSSIBLE ANTERIOR MYOCARDIAL INFARCTION , OF INDETERMINATE AGE NONSPECIFIC T WAVE ABNORMALITY A BNORMAL ECG NO PREVIOUS TRACING DOCTOR: Carlos Alberto Alva Interpretating Date/Time 07/25/2017 20:12:19
--- NOTE | 2017-07-25 20:49 | HHI.NSPN ---
History Chief Complaint: lower extremity weakness and numbness Interval History 71-year-old male with approximately 1 week of bilateral lower extremity sensory motor deficit. Transferred from [facility] with diagnosis of right psoas Abscess. Imaging studies reveal severe T11-12 stenosis with significant cord edema. Also moderate mid cervical stenosis without definite edema. The patient has no complaint of significant pain weakness or numbness in the upper extremities. Exam Results Vital Signs Date Time Temp Pulse Resp B/P (MAP) Pulse Ox O2 Delivery O2 Flow Rate FiO2 07/25/17 12:00 98.2 76 16 124/73 (90) 95 Intake and Output 07/25/17 07/25/17 07/26/17 08:00 16:00 00:00 Intake Total 2340 ml Output Total 350 ml 25 ml 650 ml Balance -350 ml -25 ml 1690 ml Physical Examination Awake and alert oriented conversant appropriate Speech is clear Reasonable judgment and insight Answers questions appropriately and follows simple commands well Sensation intact light touch upper extremities as well as over chest and abdomen. Moderate proximal and dense distal loss of sensation to light touch lower extremities. Motor function within normal limits of her extremities Lower extremity Motor function mostly one-2/5 right and mostly 2/5 left major flexion and extension groups. Lakshmi's response absent bilateral. Plantar response neutral right, extensor left Lab, Micro, Other Results Last Impressions Thoracic Spine MRI 07/25/17 0944 Signed Impressions: Service Date/Time: July 13:13 - CONCLUSION: 1. Spinal stenosis at the T11/T12 level as described above. There do appear to be some mild edematous changes within the cord across this level. 2. Scattered degenerative changes throughout the remainder of the thoracic spine. 3. No acute compression fracture identified. Chas Jaramillo MD Cervical Spine MRI 07/25/17 0000 Signed Impressions: Service Date/Time: July 13:13 - CONCLUSION: 1. Extensive degenerative disc disease through out the cervical spine. Marked loss of disc height throughout with grade 1 retrolisthesis of C4 on 5 and C5 on 6. 2. Spinal stenosis at the C5-6 level appears severe enough to compromise the cord. Spinal canal is adequate at all remaining levels. 3. In addition, there is foraminal narrowing which may be severe enough to compromise bilateral C3, bilateral C4 of the bilateral C5, bilateral C6, left C7 and left C8 nerve roots. Ancelmo Villalpando MD Lower Extremity Ultrasound 07/24/17 0000 Signed Impressions: Service Date/Time: Monday, July 24, 2017 16:57 - CONCLUSION: 1. The study is negative for deep venous thrombosis bilateral lower extremity. Paul Thomas MD Abdomen/Pelvis CT 07/24/17 0000 Signed Impressions: Service Date/Time: Monday, July 24, 2017 19:16 - CONCLUSION: Drainage catheter in the right iliac region.. No residual fluid. Izaiah Jaramillo MD FACR Medical Decision Making Impression and Plan Impression: 1. 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 Thoracic myelopathy 3. Right psoas abscess. Possible right lumbosacral plexopathy 4. Cervical stenosis, primarily C5 6 level. No definite cord edema. No evidence of upper extremity radiculopathy or myelopathy. Plan: Findings were discussed at length with the patient. Option of observation versus surgical intervention for the T11-12 stenosis discussed. He is advised that due to the severity of the lower extremity deficit and degree of cord signal intensity change, that there is probably relatively low chance of significant recovery of neurologic function regardless of treatment, however the chance of improvement is likely higher with surgical intervention. The procedure T11-12 decompressive laminectomy has been fully explained. Risks and possible complications discussed. Consents reviewed with the patient signed and witnessed. All questions answered Reynaldo Berkowitz MD Jul 25, 2017 20:49
--- NOTE | 2017-07-25 21:03 | PD.OP ---
Operative Report Date of Surgery: Jul 25, 2017 Preoperative Diagnosis: (1) Thoracic myelopathy (2) Thoracic stenosis 1. Severe T11-T12 canal stenosis 2. Thoracic myelopathy Postoperative Diagnosis: (1) Thoracic myelopathy (2) Thoracic stenosis 1. Severe T11-T12 canal stenosis 2. Thoracic myelopathy Procedure: T11-T12 decompressive laminectomy for spinal cord decompression Anesthesia: Gen. endotracheal Surgeon: Reynaldo Berkowitz Draw Bench Operator(s): Michelle Davila Operation and Findings: Findings: Severe facet and ligament hypertrophy T11-T12 level. Procedure in detail: The patient was brought into the operating room and general endotracheal anesthesia induced without difficulty. RASHAUN hose and sequential compression devices were placed. The Vincent catheter was placed. Lines were established by anesthesia. Leads for intraoperative neuro monitoring were placed and a baseline study obtained. The patient was positioned on the concentric Guicho table with the side bolsters and all extremities appropriately padded. Appropriate time-out procedure was performed with all personnel present and in agreement. The lower thoracic region was prepped and draped in a sterile fashion. 1% Xylocaine with epinephrine was used for local infiltration over the incision site which was made at the midline at the T11-T12 level. The incision was carried sharply down to the deep fascia which was incised adjacent to the spinous processes. Nielson elevator was used for subperiosteal elevation of paraspinous musculature and fascia away from the lamina and spinous process. The deep self-retaining retractor was placed. The appropriate levels were verified with intraoperative C-arm. Microscope was moved into place and used for the remainder of the procedure including the closure. At the T11 and T12 levels, the TPS drill with a 5 mm bone bur followed by the 4 mm kip bur was used to remove the inferior two thirds of the more cephalad lamina and the superior aspect of the more caudal lamina along with a moderate amount of the bilateral medial facet, taking care not to disrupt the integrity of the facet or pars intra-articularis. The hypertrophied ligamentum flavum at each level was elevated away from the thecal sac with the thin ligament dissector and resected with the 15 blade knife and the Kerrison rongeur out to the level of the deep lateral recess to completely decompress the thecal sac and exiting nerve roots. The medial facet which was significantly hypertrophied, was thinned out with the TPS drill and removed with the Kerrison Rominger at the T11-T12 level on each side. The exiting nerve roots were followed to the level of the medial pedicle to ensure that they were well decompressed. The thecal sac and nerve roots appeared well decompressed at the end of the procedure. No spinal fluid leakage was encountered. However the dura was very thin beneath the right T11-12 facet and there is mainly just a layer of arachnoid protecting the intrathecal contents. A clot was allowed to form over this region T Bleeding was carefully controlled with the bipolar forceps. A 7 mm flat fluted drain was left in place at the operative site and brought out through an incision in the lower thoracic region and secured to the skin with nylon suture and attached to a bulb suction. The closure was performed with 0 Vicryl interrupted for the deep and superficial fascia, with 3-0 Vicryl interrupted subcutaneous closure, and 4-0 Vicryl running subcuticular closure. A dressing of sterile Mastisol, Steri- Strips, and Primapore was placed. The patient was taken to recovery room in stable condition. All counts were correct at the end of the case. Estimated blood loss was 150 cc. No specimen was sent to pathology Reynaldo Berkowitz MD Jul 25, 2017 21:03
--- NOTE | 2017-07-25 21:12 | RADRPT ---
EXAM DATE/TIME: 07/25/2017 18:07 [facility] COMPARISON: No previous studies available for comparison. INDICATIONS : Laminectomy in OR. MEDICAL HISTORY : None. SURGICAL HISTORY : None. ENCOUNTER: Initial ACUITY: 1 day PAIN SCORE: Non-responsive. LOCATION: T-spine FINDINGS: Surgical instruments present with curved probe probably overlying T12 and needle overlying posterior elements at L2. CONCLUSION: 1. Intraoperative films as above. Gilberto Dorsey MD on July 25, 2017 at 21:08 Board Certified Radiologist. This report was verified electronically.
[2017-07-25 21:59] VITALS: BP 103/63; PULSE 78; RESP 18; TEMP 97.5; O2SAT 96
[2017-07-25] MEDS: ACETAMINOPHEN/HYDROcodone 325 MG/10 MG TAB PO PRN (22:11)
[2017-07-26] VITALS: BP 103/63; PULSE 78; RESP 18; TEMP 97.5; O2SAT 96
[2017-07-26 04:00] VITALS: BP 104/60; PULSE 90; RESP 18; O2SAT 93
[2017-07-26] MEDS: LEVOTHYROXINE SODIUM 125 MCG TAB PO SCH (04:08)
[2017-07-26] MEDS: D5-NS + KCL 20 MEQ INJ 1,000 ML IV SCH ×2 (04:11→09:02)
[2017-07-26 06:30] LABS: AUTOMATED NEUTROPHIL # 7.2 TH/MM3 (1.8-7.7); BASOPHIL % 0.4 % (0.0-2.0); EOSINOPHIL # 0.1 TH/MM3 (0-0.4); EOSINOPHIL % 1.5 % (0.0-4.0); HEMATOCRIT 27.7 % (39.0-51.0); HEMOGLOBIN 9.4 GM/DL (13.0-17.0); LYMPH % 7.6 % (9.0-44.0); LYMPHOCYTE # 0.7 TH/MM3 (1.0-4.8); MEAN CORPUSCULAR HEMOGLOBIN 30.6 PG (27.0-34.0); MEAN PLATELET VOLUME 6.9 FL (7.0-11.0); MONO % 11.7 % (0.0-8.0); MONOCYTE # 1.1 TH/MM3 (0-0.9); NEUT % 78.8 % (16.0-70.0); PLATELET COUNT 337 TH/MM3 (150-450); RED BLOOD COUNT 3.08 MIL/MM3 (4.50-5.90); WHITE BLOOD COUNT 9.1 TH/MM3 (4.0-11.0)
[2017-07-26 06:43] LABS: INTERNATIONAL NORMALIZED RATIO 1.2 RATIO; PROTHROMBIN TIME - PATIENT 11.8 SEC (9.8-11.6)
[2017-07-26 07:02] LABS: AST (GOT) 43 U/L (15-37); BICARBONATE 24.7 MEQ/L (21.0-32.0); BLOOD UREA NITROGEN 15 MG/DL (7-18); CALCIUM 8.3 MG/DL (8.5-10.1); CHLORIDE 100 MEQ/L (98-107); CREATININE 0.73 MG/DL (0.60-1.30); GLOMERULAR FILTRATION RATE 105 ML/MIN (>89); GLUCOSE,RANDOM 104 MG/DL (74-106); SODIUM (NA) 134 MEQ/L (136-145)
[2017-07-26 07:03] LABS: ALT (GPT) 16 U/L (12-78)
[2017-07-26 07:05] LABS: ALKALINE PHOSPHATASE 58 U/L (45-117); TOTAL BILIRUBIN ADULT 1.3 MG/DL (0.2-1.0); TOTAL PROTEIN 6.7 GM/DL (6.4-8.2)
[2017-07-26 08:00] VITALS: BP 116/67; PULSE 93; RESP 17; TEMP 97.4; O2SAT 93
[2017-07-26] MEDS: FLUTICASONE PROPIONATE 50 MCG/ACT 16 GM NASAL SPRAY EACH NARE SCH ×2 (09:00→20:40)
[2017-07-26] MEDS: ACETAMINOPHEN/HYDROcodone 325 MG/10 MG TAB PO PRN (09:01)
[2017-07-26] MEDS: DIVALPROEX SODIUM E.R. 250 MG TAB PO SCH ×2 (09:01→20:40)
[2017-07-26] MEDS: PRAVASTATIN SOD 40 MG TAB PO SCH (09:01)
--- NOTE | 2017-07-26 11:07 | HHI.PR ---
Subjective Remarks Pt lying in the bed in c-collar he reports that he is having back pain and just received pain medical Vincent cath in place Pt tolerating oral intake Objective Vitals Vital Signs Date Time Temp Pulse Resp B/P (MAP) Pulse Ox O2 Delivery O2 Flow Rate FiO2 07/26/17 08:00 97.4 93 17 116/67 (83) 93 07/26/17 04:00 90 18 104/60 (75) 93 07/26/17 00:00 97.5 78 18 103/63 (76) 96 07/25/17 23:15 22 07/25/17 21:59 97.5 78 18 103/63 (76) 96 07/25/17 21:38 78 24 99 Nasal Cannula 2 07/25/17 21:30 78 20 102/56 (71) 100 Nasal Cannula 2 07/25/17 21:15 80 20 115/68 (84) 100 Nasal Cannula 2 07/25/17 21:00 84 20 109/64 (79) 99 Nasal Cannula 2 07/25/17 20:45 85 18 112/67 (82) 100 Nasal Cannula 2 07/25/17 20:30 85 16 99/61 (74) 99 Nasal Cannula 2 07/25/17 20:15 85 18 96/51 (66) 97 Nasal Cannula 2 07/25/17 20:10 97.7 85 16 98/57 (71) 96 Nasal Cannula 2 07/25/17 12:00 98.2 76 16 124/73 (90) 95 Result Diagram: 07/26/17 0605 07/26/17 0620 Other Results Laboratory Tests Test 07/25/17 05:58 07/26/17 06:05 07/26/17 06:20 White Blood Count 12.4 TH/MM3 9.1 TH/MM3 Red Blood Count 3.08 MIL/MM3 3.08 MIL/MM3 Hemoglobin 9.5 GM/DL 9.4 GM/DL Hematocrit 27.9 % 27.7 % Mean Corpuscular Volume 90.7 FL 90.0 FL Mean Corpuscular Hemoglobin 30.9 PG 30.6 PG Mean Corpuscular Hemoglobin Concent 34.0 % 34.0 % Red Cell Distribution Width 14.3 % 14.0 % Platelet Count 331 TH/MM3 337 TH/MM3 Mean Platelet Volume 7.0 FL 6.9 FL Neutrophils (%) (Auto) 77.0 % 78.8 % Lymphocytes (%) (Auto) 8.3 % 7.6 % Monocytes (%) (Auto) 13.9 % 11.7 % Eosinophils (%) (Auto) 0.5 % 1.5 % Basophils (%) (Auto) 0.3 % 0.4 % Neutrophils # (Auto) 9.6 TH/MM3 7.2 TH/MM3 Lymphocytes # (Auto) 1.0 TH/MM3 0.7 TH/MM3 Monocytes # (Auto) 1.7 TH/MM3 1.1 TH/MM3 Eosinophils # (Auto) 0.1 TH/MM3 0.1 TH/MM3 Basophils # (Auto) 0.0 TH/MM3 0.0 TH/MM3 CBC Comment DIFF FINAL DIFF FINAL Differential Comment Prothrombin Time 12.2 SEC 11.8 SEC Prothromb Time International Ratio 1.2 RATIO 1.2 RATIO Blood Urea Nitrogen 14 MG/DL 15 MG/DL Creatinine 0.68 MG/DL 0.73 MG/DL Random Glucose 91 MG/DL 104 MG/DL Total Protein 7.2 GM/DL 6.7 GM/DL Albumin 2.1 GM/DL 2.0 GM/DL Calcium Level 8.8 MG/DL 8.3 MG/DL Magnesium Level 2.1 MG/DL Alkaline Phosphatase 663 U/L 58 U/L Aspartate Amino Transf (AST/SGOT) 66 U/L 43 U/L Alanine Aminotransferase (ALT/SGPT) 19 U/L 16 U/L Total Bilirubin 1.5 MG/DL 1.3 MG/DL Sodium Level 135 MEQ/L 134 MEQ/L Potassium Level 3.9 MEQ/L 4.1 MEQ/L Chloride Level 101 MEQ/L 100 MEQ/L Carbon Dioxide Level 26.4 MEQ/L 24.7 MEQ/L Anion Gap 8 MEQ/L 9 MEQ/L Estimat Glomerular Filtration Rate 114 ML/MIN 105 ML/MIN Activated Partial Thromboplast Time 34.7 SEC Imaging Last Impressions Thoracic Spine MRI 07/25/17 0944 Signed Impressions: Service Date/Time: July 13:13 - CONCLUSION: 1. Spinal stenosis at the T11/T12 level as described above. There do appear to be some mild edematous changes within the cord across this level. 2. Scattered degenerative changes throughout the remainder of the thoracic spine. 3. No acute compression fracture identified. Chas Jaramillo MD Thoracic Spine X-Ray 07/25/17 0000 Signed Impressions: Service Date/Time: July 18:07 - CONCLUSION: 1. Intraoperative films as above. Gilberto Dorsey MD Cervical Spine MRI 07/25/17 0000 Signed Impressions: Service Date/Time: July 13:13 - CONCLUSION: 1. Extensive degenerative disc disease through out the cervical spine. Marked loss of disc height throughout with grade 1 retrolisthesis of C4 on 5 and C5 on 6. 2. Spinal stenosis at the C5-6 level appears severe enough to compromise the cord. Spinal canal is adequate at all remaining levels. 3. In addition, there is foraminal narrowing which may be severe enough to compromise bilateral C3, bilateral C4 of the bilateral C5, bilateral C6, left C7 and left C8 nerve roots. Ancelmo Villalpando MD Lower Extremity Ultrasound 07/24/17 0000 Signed Impressions: Service Date/Time: Monday, July 24, 2017 16:57 - CONCLUSION: 1. The study is negative for deep venous thrombosis bilateral lower extremity. Paul Thomas MD Abdomen/Pelvis CT 07/24/17 0000 Signed Impressions: Service Date/Time: Monday, July 24, 2017 19:16 - CONCLUSION: Drainage catheter in the right iliac region.. No residual fluid. Izaiah Jaramillo MD FACR CT Abd/Pelvis with IV Contrast (07/21/17) @ [place] Impression: - Findings are consistent with a large right iliacus hemorrhage with a fluid/ fluid level. No active extravasation is seen. There is extension into the retroperitoneum more on the right than the left and some extension into the groin and upper thigh. The iliacus hemorrhage displaces the right psoas muscle. There is some hemorrhage extending superiorly along the posterior border of the psoas muscle. Maximum cross-sectional measurement of the iliacus hemorrhage is 7.1 x 8.7cm with a craniocaudad dimension of 13.3cm, not including the groin component. No other collections - Gallstones MRI Lumbar Spine without contrast (07/21/17) @ [place] Impression: - Abnormal exam, with the paraspinal signal alteration on the right side with involvement of the right iliacus muscle belly as well as the right psoas muscle belly nonspecific but possibly reflecting evolving active acute to subacute paraspinal abscesses, although the possibility of partial visualization of spontaneous evolving active to subacute retroperitoneal hematoma also a consideration from an imaging standpoint. Underlying complex cystic nonspecific neoplastic process not highly suspected based on the current unenhanced MRI features. Cannot entirely exclude some early subtle changes of septic arthritis with regard to the hypertrophic asymmetric appearing right L4-L5 articular facet although the possibility of asymmetric advanced arthritic changes could also account for the unenhanced MRI appearance of the right L4-L5 articular facet. - Because the changes are incompletely visualized, especially with regard to the caudal extent of the involvement of the right iliacus muscle belly, further characterization recommended with follow-up CT or MRI of the abd/pelvis with contrast with no renal contraindications exist. - Short segment of at least moderate stenosis involving the T11-T12 disc space level. Moderate central canal stenosis with cord contour remodeling noted. The associated T2 hyperintense intramedullary signal is suspicious for underlying myelomalacia as described. Objective Remarks GENERAL: This is a well-nourished, well-developed patient, in no apparent distress. SKIN: Large area of ecchymosis on the right lower flank CARDIO: Regular. RESP: CTA bilaterally. No wheezes, rales, or rhonchi. ABD: +BS, soft, non-tender, nondistended. EXT: RLE 2+ edema from the foot to the hip, palpable pedal pulse bilaterally NEURO: Pt able to wiggle his toes more on the right foot, pt able to passively more his LLE more today than yesterday A/P Problem List: (1) Hematoma of right psoas region to anticoagulant therapy ICD Codes: S30.1XXA - Contusion of abdominal wall, initial encounter Status: Acute Plan: Right iliacus and right psoas muscle hematoma, likely secondary to supra- therapeutic INR - Pt is a 71 y/o WM with hyperlipidemia, HTN, hx of CAD, hx of CVA on chronic anticoagulation with Coumadin, hypothyroidism. - Pt was transferred from [facility] on 07/24/17 with a right iliopsoas muscle hematoma. - Pt has been having increased right hip pain for approx 1 week and developed "numbness" to the RLE and suffered a fall from the bedside commode to the floor. - Pt was seen in the ED at [facility] on 07/21/17. Pt was evaluated with MRI Lumbar Spine without contrast (07/21/17) --> the paraspinal signal alteration on the right side with involvement of the right iliacus muscle belly as well as the right psoas muscle belly nonspecific but possibly reflecting evolving active acute to subacute paraspinal abscesses, although the possibility of partial visualization of spontaneous evolving active to subacute retroperitoneal hematoma also a consideration from an imaging standpoint. CT Abd/Pelvis with IV Contrast (07/21/17) --> findings are consistent with a large right iliacus hemorrhage with a fluid/fluid level. No active extravasation is seen. There is extension into the retroperitoneum more on the right than the left and some extension into the groin and upper thigh. The iliacus hemorrhage displaces the right psoas muscle. There is some hemorrhage extending superiorly along the posterior border of the psoas muscle. Maximum cross-sectional measurement of the iliacus hemorrhage is 7.1 x 8.7cm with a craniocaudad dimension of 13.3cm, not including the groin component. - Pts INR was reportedly 7 on 07/21 (I do not have those records from [facility] at this time). - Pt reportedly received a transfusion of 4 units FFP and a couple units of PRBCs as his Hgb went down to 7.7 at [facility]. - Pt was transferred to [facility] on 07/24/17 as the pts attending physician at [facility] felt that the neurological function of the pts RLE was being compromised and IR tried to drain the hematoma but reportedly was only able to get about 100cc and a drain remains in place. - Consult placed to General Surgery at admission. Discussed the case with Dr. Andrews this morning, no surgical intervention planned at this time - Repeat CT Abd/pelvis with IV Contrast (07/24/17) --> Drainage catheter in the right iliac region in the center of the mass or hematoma. No residual fluid. - Bilateral LE Doppler US (07/24/17) --> Negative for DVT - Repeat INR (07/24/17) is 1.3 - Discussed the case with Dr. Andrews on 07/25/17 and drain removed by IR on 07/25/17 T11-12 canal stenosis Bilateral LE weakness - Pt had MRI Lumbar spine at [facility] on 07/21/17, results reported above. - Appreciate consult from Neurosurgery. Case discussed with Dr. Berkowitz on 07/25/17 and he reviewed MRI images from [facility] and reports concern for T11-T12 cord compression and possible infarction. - Pt underwent T11-T12 decompressive laminectomy for spinal cord decompression on 07/25/[address] Berkowitz - Post-op pain control per NSx - Vincent cath in place Elevated LFTs - Etiology unclear - Pt with noted gallstones on CT scan - AlkPhos increased significantly from 52 to 668 - Consider Liver US Hx of CVA on chronic anticoagulation with Coumadin - Pt reportedly had a previous supra-therapeutic INR and received 4 units of FFP at [facility] - Pts reported that his Coumadin was increased to 5mg po daily in May 2017 for subtherapeutic INR. Prior to that he was on 5mg 4 days per week and 1/2 tablet 2 days per week. - Cont. to hold Coumadin - INR 1.3 on 07/24/17 Hypothyroidism - Cont. home meds Hyperlipidemia - Cont. home meds Hx of seizure disorder - Cont. Depakote ER 750mg po BID - Check Depakote level Chemical DVT prophylaxis contraindicated at this time due to hematoma, SCDs (2) HTN (hypertension) ICD Codes: I10 - Essential (primary) hypertension Status: Chronic (3) History of CVA (cerebrovascular accident) ICD Codes: Z86.73 - Personal history of transient ischemic attack (TIA), and cerebral infarction without residual deficits Status: Chronic (4) Hypothyroidism ICD Codes: E03.9 - Hypothyroidism, unspecified Status: Chronic (5) Hyperlipidemia ICD Codes: E78.5 - Hyperlipidemia, unspecified Status: Chronic (6) Hx of seizure disorder ICD Codes: Z86.69 - Personal history of other diseases of the nervous system and sense organs Status: Chronic Assessment and Plan Patient examined. Assessment and plan formulated with Rosa Díaz PA-C. I agree with the above. discussed with Dr Berkowitz and pt/. s/p decompressive laminectomy cont PT. will need snf. inc spirometer. Problem Qualifiers (1) Hematoma of right psoas region to anticoagulant therapy: Qualified Codes: S30.1XXA - Contusion of abdominal wall, initial encounter Rosa Díaz Jul 26, 2017 11:07 John Cheng MD Jul 26, 2017 12:51
[2017-07-26 12:00] VITALS: BP 110/56; PULSE 101; RESP 17; TEMP 99.4; O2SAT 95
--- NOTE | 2017-07-26 14:14 | HHI.NSPN ---
(Rolf Bender) History Chief Complaint: Incisional pain, persistent leg weakness ([place]) Interval History 07/23: 71-year-old male transferred from [facility] with right iliopsoas hematoma. Patient apparently has had significant progression of right hip pain in the past 2 weeks. Approximate 10 days ago he noted onset of numbness in the right lower extremity with also apparently some weakness developing. He was seen in the emergency room on 07/21/17 with MRI revealing findings consistent with right iliopsoas hematoma versus abscess, as well as T11-12 stenosis with signal intensity changes within the cord. Mr. oquendo states that approximately a week ago, he developed progressive pain numbness and weakness in the left lower extremity. He states that he has not been able to walk for approximately a week. He has not been able to lift his left leg off the bed for 5-7 days. He complains of severe stinging-burning type pain in his feet and ankles. Subsequent admission with CT scan abdomen and pelvis revealing large right iliopsoas hematoma with retroperitoneal extension. Patient has been on Coumadin for CAD, previous CVA. Received PRBC and FFP at [facility]. The case was apparently discussed with neurosurgery at [facility] with recommendations for non-operative management. The patient was subsequently transferred to [facility] for neurosurgery evaluation. 07/24: 71-year-old male with approximately 1 week of bilateral lower extremity sensory motor deficit. Transferred from [facility] with diagnosis of right psoas abscess. Imaging studies reveal severe T11-12 stenosis with significant cord edema. Also moderate mid cervical stenosis without definite edema. The patient has no complaint of significant pain weakness or numbness in the upper extremities. 07/25: The patient went to the operating room urgently for a T11-T12 decompressive laminectomy to decompress the spinal cord. Post-operatively he was returned to the med/surg floor. 07/26: When seen this afternoon the patient is asleep but he awakens to voice. He says he feels much better. He has some mild pain to the surgical incision. He has no headache or dizziness. He denies any pain, numbness or tingling to the lower extremities. Upon examination the patient says that he is able to feel light touch. He does continue to have weakness to the lower extremities, the right being worse. (Rolf Bender) Exam Results 07/24/17 07/24/17 07/25/17 07/25/17 07/26/17 07/26/17 06:00 18:00 06:00 18:00 06:00 18:00 Intake Total 500 ml 240 ml 2250 ml 323 ml Output Total 410 ml 675 ml 650 ml Balance 90 ml -435 ml 1600 ml 323 ml Intake Oral 500 ml 240 ml IV Total 150 ml 323 ml Other 2100 ml Output Urine Total 400 ml 650 ml 500 ml Drainage Total 10 ml 25 ml Estimated Blood Loss 150 ml # Voids 1 # Bowel Movements 0 Vital Signs Date Time Temp Pulse Resp B/P (MAP) Pulse Ox O2 Delivery O2 Flow Rate FiO2 07/26/17 12:00 99.4 101 17 110/56 (74) 95 07/26/17 08:00 97.4 93 17 116/67 (83) 93 07/26/17 04:00 90 18 104/60 (75) 93 07/26/17 00:00 97.5 78 18 103/63 (76) 96 07/25/17 23:15 22 07/25/17 21:59 97.5 78 18 103/63 (76) 96 07/25/17 21:38 78 24 99 Nasal Cannula 2 07/25/17 21:30 78 20 102/56 (71) 100 Nasal Cannula 2 07/25/17 21:15 80 20 115/68 (84) 100 Nasal Cannula 2 07/25/17 21:00 84 20 109/64 (79) 99 Nasal Cannula 2 07/25/17 20:45 85 18 112/67 (82) 100 Nasal Cannula 2 07/25/17 20:30 85 16 99/61 (74) 99 Nasal Cannula 2 07/25/17 20:15 85 18 96/51 (66) 97 Nasal Cannula 2 07/25/17 20:10 97.7 85 16 98/57 (71) 96 Nasal Cannula 2 07/25/17 12:00 98.2 76 16 124/73 (90) 95 07/25/17 08:00 97.9 92 17 138/78 (98) 95 07/25/17 00:00 99.1 92 20 120/65 (83) 96 07/24/17 20:00 98.1 89 20 129/74 (92) 96 07/24/17 16:00 99.3 101 19 141/77 (98) 96 07/24/17 12:00 98.0 96 18 142/71 (94) 96 07/24/17 08:00 98.6 76 17 135/73 (93) 94 (Rolf Bender) Physical Examination GENERAL: Asleep but awakens to voice. Awake & alert after that. Affect normal. Readily interacts. No apparent distress. HEENT: Normocephalic. Atraumatic. MUSCULOSKELETAL: Right posterolateral flank, back & hip ecchymosis TTP. Intact dressing to thoracic surgical incision, minimally TTP, GLORIA drain to bulb suction w/trace serosanguinous drainage in tubing. NEUROLOGICAL: Asleep but awakens to voice. Awake & alert after that. Oriented to person, place & time. Speech clear & appropriate. Follows simple commands w/o difficulty. Sensation intact to light touch to all extremities. Motor strength: LUE: 4+ to 5 to all major flexion & extension muscle groups, to include wrist flexors & extensors except hand intrinsics & extrinsics 3 to 3+/5. RUE: 4+ to 5 to all major flexion & extension muscle groups, to include wrist flexors & extensors except hand intrinsics & extrinsics 3 to 3+/5. LLE: Iliopsoas 3+/5, quadriceps 3+ to 4/5, hamstring 3 to 3+/5, tibialis anterior 3+/5, gastrocnemius 4+/5 & extensor hallucis longus 4+/5. RLE: Iliopsoas 1+/5, quadriceps 0/5, hamstring 0/5, tibialis anterior 1+/5, gastrocnemius 1+ to 2/5 & extensor hallucis longus 2/5. (Rolf Bender) Lab, Micro, Other Results Recent Impressions Thoracic Spine MRI 07/25/17 0944 Signed Impressions: Service Date/Time: July 13:13 - CONCLUSION: 1. Spinal stenosis at the T11/T12 level as described above. There do appear to be some mild edematous changes within the cord across this level. 2. Scattered degenerative changes throughout the remainder of the thoracic spine. 3. No acute compression fracture identified. Chas Jaramillo MD Thoracic Spine X-Ray 07/25/17 0000 Signed Impressions: Service Date/Time: July 18:07 - CONCLUSION: 1. Intraoperative films as above. Gilberto Dorsey MD Cervical Spine MRI 07/25/17 0000 Signed Impressions: Service Date/Time: July 13:13 - CONCLUSION: 1. Extensive degenerative disc disease through out the cervical spine. Marked loss of disc height throughout with grade 1 retrolisthesis of C4 on 5 and C5 on 6. 2. Spinal stenosis at the C5-6 level appears severe enough to compromise the cord. Spinal canal is adequate at all remaining levels. 3. In addition, there is foraminal narrowing which may be severe enough to compromise bilateral C3, bilateral C4 of the bilateral C5, bilateral C6, left C7 and left C8 nerve roots. Ancelmo Villalpando MD Lower Extremity Ultrasound 07/24/17 0000 Signed Impressions: Service Date/Time: Monday, July 24, 2017 16:57 - CONCLUSION: 1. The study is negative for deep venous thrombosis bilateral lower extremity. Paul Thomas MD Abdomen/Pelvis CT 07/24/17 0000 Signed Impressions: Service Date/Time: Monday, July 24, 2017 19:16 - CONCLUSION: Drainage catheter in the right iliac region.. No residual fluid. Izaiah Jaramillo MD FACR Laboratory Tests Test 07/24/17 08:53 07/25/17 05:58 07/26/17 06:05 07/26/17 06:20 White Blood Count 12.9 TH/MM3 12.4 TH/MM3 9.1 TH/MM3 Red Blood Count 3.05 MIL/MM3 3.08 MIL/MM3 3.08 MIL/MM3 Hemoglobin 9.3 GM/DL 9.5 GM/DL 9.4 GM/DL Hematocrit 27.6 % 27.9 % 27.7 % Mean Corpuscular Volume 90.7 FL 90.7 FL 90.0 FL Mean Corpuscular Hemoglobin 30.4 PG 30.9 PG 30.6 PG Mean Corpuscular Hemoglobin Concent 33.6 % 34.0 % 34.0 % Red Cell Distribution Width 14.0 % 14.3 % 14.0 % Platelet Count 316 TH/MM3 331 TH/MM3 337 TH/MM3 Mean Platelet Volume 7.2 FL 7.0 FL 6.9 FL Neutrophils (%) (Auto) 76.9 % 77.0 % 78.8 % Lymphocytes (%) (Auto) 6.3 % 8.3 % 7.6 % Monocytes (%) (Auto) 16.3 % 13.9 % 11.7 % Eosinophils (%) (Auto) 0.2 % 0.5 % 1.5 % Basophils (%) (Auto) 0.3 % 0.3 % 0.4 % Neutrophils # (Auto) 9.9 TH/MM3 9.6 TH/MM3 7.2 TH/MM3 Lymphocytes # (Auto) 0.8 TH/MM3 1.0 TH/MM3 0.7 TH/MM3 Monocytes # (Auto) 2.1 TH/MM3 1.7 TH/MM3 1.1 TH/MM3 Eosinophils # (Auto) 0.0 TH/MM3 0.1 TH/MM3 0.1 TH/MM3 Basophils # (Auto) 0.0 TH/MM3 0.0 TH/MM3 0.0 TH/MM3 CBC Comment DIFF FINAL DIFF FINAL DIFF FINAL Differential Comment Prothrombin Time 12.7 SEC 12.2 SEC 11.8 SEC Prothromb Time International Ratio 1.3 RATIO 1.2 RATIO 1.2 RATIO Activated Partial Thromboplast Time 37.3 SEC 34.7 SEC Blood Urea Nitrogen 12 MG/DL 14 MG/DL 15 MG/DL Creatinine 0.83 MG/DL 0.68 MG/DL 0.73 MG/DL Random Glucose 96 MG/DL 91 MG/DL 104 MG/DL Total Protein 7.2 GM/DL 7.2 GM/DL 6.7 GM/DL Albumin 2.4 GM/DL 2.1 GM/DL 2.0 GM/DL Calcium Level 8.6 MG/DL 8.8 MG/DL 8.3 MG/DL Alkaline Phosphatase 58 U/L 663 U/L 58 U/L Aspartate Amino Transf (AST/SGOT) 63 U/L 66 U/L 43 U/L Alanine Aminotransferase (ALT/SGPT) 19 U/L 19 U/L 16 U/L Total Bilirubin 1.3 MG/DL 1.5 MG/DL 1.3 MG/DL Sodium Level 135 MEQ/L 135 MEQ/L 134 MEQ/L Potassium Level 3.8 MEQ/L 3.9 MEQ/L 4.1 MEQ/L Chloride Level 101 MEQ/L 101 MEQ/L 100 MEQ/L Carbon Dioxide Level 27.9 MEQ/L 26.4 MEQ/L 24.7 MEQ/L Anion Gap 6 MEQ/L 8 MEQ/L 9 MEQ/L Estimat Glomerular Filtration Rate 91 ML/MIN 114 ML/MIN 105 ML/MIN Valproic Acid (Depakene) Level 61 MCG/ML Magnesium Level 2.1 MG/DL (Rolf Bender) Medical Decision Making Impression and Plan Impression: 1. 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 Thoracic myelopathy 3. Right psoas abscess. Possible right lumbosacral plexopathy 4. Cervical stenosis, primarily C5 6 level. No definite cord edema. No evidence of upper extremity radiculopathy or myelopathy. Postoperative Diagnosis: (1) Thoracic myelopathy (2) Thoracic stenosis 1. Severe T11-T12 canal stenosis 2. Thoracic myelopathy Patient is doing well post-operatively. Patient states sensation intact to lower extremities upon examination. RLE still weak but appears improved in LLE. T max 99.4 at noon today. Reviewed labs for today. Haemoglobin level essentially stable. INR 1.2 & aPTT 34.7. Sodium 134. Improvement in AST & alk phos levels. POD #1 () s/p: T11-T12 decompressive laminectomy for spinal cord decompression Plan: Primary management per Hospitalist. Neuro checks. Turn patient q2h [id number] keeping patient off of the thoracic surgical incision. Monitor GLORIA drain output. (Rolf Bender) Attending Statement The exam, history, and the medical decision-making described in the above note were completed with the assistance of the mid-level provider. I reviewed and agree with the findings presented. I attest that I had a [id number] encounter with the patient on the same day, and personally performed and documented my assessment and findings in the medical record. Patient with mild increased sensorimotor function initially postop. Discontinue drains Begin physical therapy (Reynaldo Berkowitz MD) Rolf Bender Jul 26, 2017 14:14 Reynaldo Berkowitz MD Jul 29, 2017 12:55
[2017-07-26 16:00] VITALS: BP 118/64; PULSE 103; RESP 17; TEMP 99; O2SAT 93
[2017-07-26 20:00] VITALS: BP 139/55; PULSE 91; RESP 18; TEMP 97.5; O2SAT 95
[2017-07-27] VITALS: BP 133/67; PULSE 100; RESP 19; TEMP 97.1; O2SAT 93
[2017-07-27 04:00] VITALS: BP 120/67; PULSE 94; RESP 18; TEMP 98.6; O2SAT 93
[2017-07-27] MEDS: LEVOTHYROXINE SODIUM 125 MCG TAB PO SCH (04:48)
[2017-07-27 08:00] VITALS: BP 115/64; PULSE 94; RESP 16; TEMP 97.1; O2SAT 94
[2017-07-27] MEDS: FLUTICASONE PROPIONATE 50 MCG/ACT 16 GM NASAL SPRAY EACH NARE SCH ×2 (09:00→20:42)
--- NOTE | 2017-07-27 10:09 | HHI.PR ---
Subjective Remarks Pt reports that he has less back pain today and is moving his RLE more today RLE still significantly swollen Objective Vitals Vital Signs Date Time Temp Pulse Resp B/P (MAP) Pulse Ox O2 Delivery O2 Flow Rate FiO2 07/27/17 08:00 97.1 94 16 115/64 (81) 94 07/27/17 04:00 98.6 94 18 120/67 (84) 93 07/27/17 00:00 97.1 100 19 133/67 (89) 93 07/26/17 20:00 97.5 91 18 139/55 (83) 95 07/26/17 16:00 99.0 103 17 118/64 (82) 93 07/26/17 12:00 99.4 101 17 110/56 (74) 95 Result Diagram: 07/26/17 0605 07/26/17 0620 Other Results Laboratory Tests Test 07/26/17 06:05 07/26/17 06:20 White Blood Count 9.1 TH/MM3 Red Blood Count 3.08 MIL/MM3 Hemoglobin 9.4 GM/DL Hematocrit 27.7 % Mean Corpuscular Volume 90.0 FL Mean Corpuscular Hemoglobin 30.6 PG Mean Corpuscular Hemoglobin Concent 34.0 % Red Cell Distribution Width 14.0 % Platelet Count 337 TH/MM3 Mean Platelet Volume 6.9 FL Neutrophils (%) (Auto) 78.8 % Lymphocytes (%) (Auto) 7.6 % Monocytes (%) (Auto) 11.7 % Eosinophils (%) (Auto) 1.5 % Basophils (%) (Auto) 0.4 % Neutrophils # (Auto) 7.2 TH/MM3 Lymphocytes # (Auto) 0.7 TH/MM3 Monocytes # (Auto) 1.1 TH/MM3 Eosinophils # (Auto) 0.1 TH/MM3 Basophils # (Auto) 0.0 TH/MM3 CBC Comment DIFF FINAL Differential Comment Prothrombin Time 11.8 SEC Prothromb Time International Ratio 1.2 RATIO Activated Partial Thromboplast Time 34.7 SEC Blood Urea Nitrogen 15 MG/DL Creatinine 0.73 MG/DL Random Glucose 104 MG/DL Total Protein 6.7 GM/DL Albumin 2.0 GM/DL Calcium Level 8.3 MG/DL Alkaline Phosphatase 58 U/L Aspartate Amino Transf (AST/SGOT) 43 U/L Alanine Aminotransferase (ALT/SGPT) 16 U/L Total Bilirubin 1.3 MG/DL Sodium Level 134 MEQ/L Potassium Level 4.1 MEQ/L Chloride Level 100 MEQ/L Carbon Dioxide Level 24.7 MEQ/L Anion Gap 9 MEQ/L Estimat Glomerular Filtration Rate 105 ML/MIN Imaging Last Impressions Thoracic Spine MRI 07/25/17 0944 Signed Impressions: Service Date/Time: July 13:13 - CONCLUSION: 1. Spinal stenosis at the T11/T12 level as described above. There do appear to be some mild edematous changes within the cord across this level. 2. Scattered degenerative changes throughout the remainder of the thoracic spine. 3. No acute compression fracture identified. Chas Jaramillo MD Thoracic Spine X-Ray 07/25/17 0000 Signed Impressions: Service Date/Time: July 18:07 - CONCLUSION: 1. Intraoperative films as above. Gilberto Dorsey MD Cervical Spine MRI 07/25/17 0000 Signed Impressions: Service Date/Time: July 13:13 - CONCLUSION: 1. Extensive degenerative disc disease through out the cervical spine. Marked loss of disc height throughout with grade 1 retrolisthesis of C4 on 5 and C5 on 6. 2. Spinal stenosis at the C5-6 level appears severe enough to compromise the cord. Spinal canal is adequate at all remaining levels. 3. In addition, there is foraminal narrowing which may be severe enough to compromise bilateral C3, bilateral C4 of the bilateral C5, bilateral C6, left C7 and left C8 nerve roots. Ancelmo Villalpando MD Lower Extremity Ultrasound 07/24/17 0000 Signed Impressions: Service Date/Time: Monday, July 24, 2017 16:57 - CONCLUSION: 1. The study is negative for deep venous thrombosis bilateral lower extremity. Paul Thomas MD Abdomen/Pelvis CT 07/24/17 0000 Signed Impressions: Service Date/Time: Monday, July 24, 2017 19:16 - CONCLUSION: Drainage catheter in the right iliac region.. No residual fluid. Izaiah Jaramillo MD FACR CT Abd/Pelvis with IV Contrast (07/21/17) @ [place] Impression: - Findings are consistent with a large right iliacus hemorrhage with a fluid/ fluid level. No active extravasation is seen. There is extension into the retroperitoneum more on the right than the left and some extension into the groin and upper thigh. The iliacus hemorrhage displaces the right psoas muscle. There is some hemorrhage extending superiorly along the posterior border of the psoas muscle. Maximum cross-sectional measurement of the iliacus hemorrhage is 7.1 x 8.7cm with a craniocaudad dimension of 13.3cm, not including the groin component. No other collections - Gallstones MRI Lumbar Spine without contrast (07/21/17) @ [place] Impression: - Abnormal exam, with the paraspinal signal alteration on the right side with involvement of the right iliacus muscle belly as well as the right psoas muscle belly nonspecific but possibly reflecting evolving active acute to subacute paraspinal abscesses, although the possibility of partial visualization of spontaneous evolving active to subacute retroperitoneal hematoma also a consideration from an imaging standpoint. Underlying complex cystic nonspecific neoplastic process not highly suspected based on the current unenhanced MRI features. Cannot entirely exclude some early subtle changes of septic arthritis with regard to the hypertrophic asymmetric appearing right L4-L5 articular facet although the possibility of asymmetric advanced arthritic changes could also account for the unenhanced MRI appearance of the right L4-L5 articular facet. - Because the changes are incompletely visualized, especially with regard to the caudal extent of the involvement of the right iliacus muscle belly, further characterization recommended with follow-up CT or MRI of the abd/pelvis with contrast with no renal contraindications exist. - Short segment of at least moderate stenosis involving the T11-T12 disc space level. Moderate central canal stenosis with cord contour remodeling noted. The associated T2 hyperintense intramedullary signal is suspicious for underlying myelomalacia as described. Objective Remarks GENERAL: This is a well-nourished, well-developed patient, in no apparent distress. SKIN: Large area of ecchymosis on the right lower flank CARDIO: Regular. RESP: CTA bilaterally. No wheezes, rales, or rhonchi. ABD: +BS, soft, non-tender, nondistended. EXT: RLE 2+ edema from the foot to the hip, palpable pedal pulse bilaterally NEURO: Pt able to move the right foot at the ankle and shake his RLE side to side, pt able to passively move his LLE more today than yesterday A/P Problem List: (1) Hematoma of right psoas region to anticoagulant therapy ICD Codes: S30.1XXA - Contusion of abdominal wall, initial encounter Status: Acute Plan: Right iliacus and right psoas muscle hematoma, likely secondary to supra- therapeutic INR - Pt is a 71 y/o WM with hyperlipidemia, HTN, hx of CAD, hx of CVA on chronic anticoagulation with Coumadin, hypothyroidism. - Pt was transferred from [facility] on 07/24/17 with a right iliopsoas muscle hematoma. - Pt has been having increased right hip pain for approx 1 week and developed "numbness" to the RLE and suffered a fall from the bedside commode to the floor. - Pt was seen in the ED at [facility] on 07/21/17. Pt was evaluated with MRI Lumbar Spine without contrast (07/21/17) --> the paraspinal signal alteration on the right side with involvement of the right iliacus muscle belly as well as the right psoas muscle belly nonspecific but possibly reflecting evolving active acute to subacute paraspinal abscesses, although the possibility of partial visualization of spontaneous evolving active to subacute retroperitoneal hematoma also a consideration from an imaging standpoint. CT Abd/Pelvis with IV Contrast (07/21/17) --> findings are consistent with a large right iliacus hemorrhage with a fluid/fluid level. No active extravasation is seen. There is extension into the retroperitoneum more on the right than the left and some extension into the groin and upper thigh. The iliacus hemorrhage displaces the right psoas muscle. There is some hemorrhage extending superiorly along the posterior border of the psoas muscle. Maximum cross-sectional measurement of the iliacus hemorrhage is 7.1 x 8.7cm with a craniocaudad dimension of 13.3cm, not including the groin component. - Pts INR was reportedly 7 on 07/21 (I do not have those records from [facility] at this time). - Pt reportedly received a transfusion of 4 units FFP and a couple units of PRBCs as his Hgb went down to 7.7 at [facility]. - Pt was transferred to [facility] on 07/24/17 as the pts attending physician at [facility] felt that the neurological function of the pts RLE was being compromised and IR tried to drain the hematoma but reportedly was only able to get about 100cc and a drain remains in place. - Consult placed to General Surgery at admission. Discussed the case with Dr. Andrews this morning, no surgical intervention planned at this time - Repeat CT Abd/pelvis with IV Contrast (07/24/17) --> Drainage catheter in the right iliac region in the center of the mass or hematoma. No residual fluid. - Bilateral LE Doppler US (07/24/17) --> Negative for DVT - Repeat INR (07/26/17) is 1.2 - Discussed the case with Dr. Andrews on 07/25/17 and drain removed by IR on 07/25/17 T11-12 canal stenosis Bilateral LE weakness - Pt had MRI Lumbar spine at [facility] on 07/21/17, results reported above. - Appreciate consult from Neurosurgery. Case discussed with Dr. Berkowitz on 07/25/17 and he reviewed MRI images from [facility] and reports concern for T11-T12 cord compression and possible infarction. - Pt underwent T11-T12 decompressive laminectomy for spinal cord decompression on 07/25/[address] Berkowitz - Post-op pain control per NSx - [facility] cath in place - PT daily - Pt will need placement at SNF at the end of this hospitalization Elevated LFTs - Etiology unclear - Pt with noted gallstones on CT scan - AlkPhos increased significantly from 52 to 668 on 07/25 but repeat labs on 07/26 with AlkPhos back down to 58 Hx of CVA on chronic anticoagulation with Coumadin - Pt reportedly had a previous supra-therapeutic INR and received 4 units of FFP at [facility] - Pts reported that his Coumadin was increased to 5mg po daily in May 2017 for subtherapeutic INR. Prior to that he was on 5mg 4 days per week and 1/2 tablet 2 days per week. - Cont. to hold Coumadin - INR 1.2 on 07/26/17 Hypothyroidism - Cont. home meds Hyperlipidemia - Cont. home meds Hx of seizure disorder - Cont. Depakote ER 750mg po BID Chemical DVT prophylaxis contraindicated at this time due to hematoma, SCDs (2) HTN (hypertension) ICD Codes: I10 - Essential (primary) hypertension Status: Chronic (3) History of CVA (cerebrovascular accident) ICD Codes: Z86.73 - Personal history of transient ischemic attack (TIA), and cerebral infarction without residual deficits Status: Chronic (4) Hypothyroidism ICD Codes: E03.9 - Hypothyroidism, unspecified Status: Chronic (5) Hyperlipidemia ICD Codes: E78.5 - Hyperlipidemia, unspecified Status: Chronic (6) Hx of seizure disorder ICD Codes: Z86.69 - Personal history of other diseases of the nervous system and sense organs Status: Chronic Assessment and Plan Patient examined. Assessment and plan formulated with Rosa Díaz PA-C. I agree with the above. discussed with Dr Berkowitz and pt/. s/p decompressive laminectomy cont PT. will need snf. hopefully d/c by ?Saturday appears to have improving lower ext strength inc spirometer. Problem Qualifiers (1) Hematoma of right psoas region to anticoagulant therapy: Qualified Codes: S30.1XXA - Contusion of abdominal wall, initial encounter Rosa Díaz Jul 27, 2017 10:09 John Cheng MD Jul 27, 2017 13:32
--- NOTE | 2017-07-27 11:11 | HHI.NSPN ---
History Chief Complaint: Incisional pain, persistent leg weakness Interval History 07/23: 71-year-old male transferred from [facility] [place] with right iliopsoas hematoma. Patient apparently has had significant progression of right hip pain in the past 2 weeks. Approximate 10 days ago he noted onset of numbness in the right lower extremity with also apparently some weakness developing. He was seen in the emergency room on 07/21/17 with MRI revealing findings consistent with right iliopsoas hematoma versus abscess, as well as T11-12 stenosis with signal intensity changes within the cord. Mr. oquendo states that approximately a week ago, he developed progressive pain numbness and weakness in the left lower extremity. He states that he has not been able to walk for approximately a week. He has not been able to lift his left leg off the bed for 5-7 days. He complains of severe stinging-burning type pain in his feet and ankles. Subsequent admission with CT scan abdomen and pelvis revealing large right iliopsoas hematoma with retroperitoneal extension. Patient has been on Coumadin for CAD, previous CVA. Received PRBC and FFP at [facility]. The case was apparently discussed with neurosurgery at [facility] with recommendations for non-operative management. The patient was subsequently transferred to [facility] for neurosurgery evaluation. 07/24: 71-year-old male with approximately 1 week of bilateral lower extremity sensory motor deficit. Transferred from [facility] with diagnosis of right psoas abscess. Imaging studies reveal severe T11-12 stenosis with significant cord edema. Also moderate mid cervical stenosis without definite edema. The patient has no complaint of significant pain weakness or numbness in the upper extremities. 07/25: The patient went to the operating room urgently for a T11-T12 decompressive laminectomy to decompress the spinal cord. Post-operatively he was returned to the med/surg floor. 07/26: When seen this afternoon the patient is asleep but he awakens to voice. He says he feels much better. He has some mild pain to the surgical incision. He has no headache or dizziness. He denies any pain, numbness or tingling to the lower extremities. Upon examination the patient says that he is able to feel light touch. He does continue to have weakness to the lower extremities, the right being worse. 07/27: Pt awake and alert. Sitting up in chair in NAD. States strength with some improvement and he was able to stand with assistance. No radiculopathy or paresthesias in LEs. Review of Systems General: Negative for: fever, chills, insomnia Respiratory: Negative for: shortness of breath, cough, sputum Cardiovascular: Negative for: chest pain Gastrointestinal: Negative for: nausea, vomitting, diarrhea, constipation Exam Results Vital Signs Date Time Temp Pulse Resp B/P (MAP) Pulse Ox O2 Delivery O2 Flow Rate FiO2 07/27/17 08:00 97.1 94 16 115/64 (81) 94 07/25/17 21:38 Nasal Cannula 2 Intake and Output 07/27/17 07/27/17 07/28/17 08:00 16:00 00:00 Intake Total 840 ml Output Total 700 ml Balance 140 ml Physical Examination GENERAL: Asleep but awakens to voice. Awake & alert after that. Affect normal. Readily interacts. No apparent distress. HEENT: Normocephalic. Atraumatic. RESP: CTA bilaterally HEART: NSR no murmurs SKIN: No cyanosis or erythema in LEs. : Vincent in place. MUSCULOSKELETAL: Motor strength: LUE: 4+ to 5 to all major flexion & extension muscle groups, to include wrist flexors & extensors except hand intrinsics & extrinsics 3 to 3+/5. RUE: 4+ to 5 to all major flexion & extension muscle groups, to include wrist flexors & extensors except hand intrinsics & extrinsics 3 to 3+/5. LLE: Iliopsoas 3+/5, quadriceps 3+ to 4/5, hamstring 3 to 3+/5, tibialis anterior 3+/5, gastrocnemius 4+/5 & extensor hallucis longus 4+/5. RLE: Iliopsoas 1+/5, quadriceps 0/5, hamstring 0/5, tibialis anterior 1+/5, gastrocnemius 1+ to 2/5 & extensor hallucis longus 2/5. NEUROLOGICAL: Asleep but awakens to voice. Awake & alert after that. Oriented to person, place & time. Speech clear & appropriate. Follows simple commands w/o difficulty. Sensation intact to light touch to all extremities. Lab, Micro, Other Results Last Impressions Thoracic Spine MRI 07/25/17 0944 Signed Impressions: Service Date/Time: July 13:13 - CONCLUSION: 1. Spinal stenosis at the T11/T12 level as described above. There do appear to be some mild edematous changes within the cord across this level. 2. Scattered degenerative changes throughout the remainder of the thoracic spine. 3. No acute compression fracture identified. Chas Jaramillo MD Thoracic Spine X-Ray 07/25/17 0000 Signed Impressions: Service Date/Time: July 18:07 - CONCLUSION: 1. Intraoperative films as above. Gilberto Dorsey MD Cervical Spine MRI 07/25/17 0000 Signed Impressions: Service Date/Time: July 13:13 - CONCLUSION: 1. Extensive degenerative disc disease through out the cervical spine. Marked loss of disc height throughout with grade 1 retrolisthesis of C4 on 5 and C5 on 6. 2. Spinal stenosis at the C5-6 level appears severe enough to compromise the cord. Spinal canal is adequate at all remaining levels. 3. In addition, there is foraminal narrowing which may be severe enough to compromise bilateral C3, bilateral C4 of the bilateral C5, bilateral C6, left C7 and left C8 nerve roots. Ancelmo Villalpando MD Lower Extremity Ultrasound 07/24/17 0000 Signed Impressions: Service Date/Time: Monday, July 24, 2017 16:57 - CONCLUSION: 1. The study is negative for deep venous thrombosis bilateral lower extremity. Paul Thomas MD Abdomen/Pelvis CT 07/24/17 0000 Signed Impressions: Service Date/Time: Monday, July 24, 2017 19:16 - CONCLUSION: Drainage catheter in the right iliac region.. No residual fluid. Izaiah Jaramillo MD FACR Medical Decision Making Impression and Plan Impression: 1. 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 Thoracic myelopathy 3. Right psoas abscess. Possible right lumbosacral plexopathy 4. Cervical stenosis, primarily C5 6 level. No definite cord edema. No evidence of upper extremity radiculopathy or myelopathy. Reviewed labs for today. Haemoglobin level essentially stable. INR 1.2 & aPTT 34.7. Sodium 134. Improvement in AST & alk phos levels. () s/p: T11-T12 decompressive laminectomy for spinal cord decompression Plan: Primary management per Hospitalist. Neuro checks. D/C [facility] at discharge. Arturo Kaplan Jul 27, 2017 11:11 am
[2017-07-27 12:00] VITALS: BP 124/63; PULSE 95; RESP 16; TEMP 97.9; O2SAT 97
[2017-07-27] MEDS: DIVALPROEX SODIUM E.R. 250 MG TAB PO SCH ×2 (12:12→20:42)
[2017-07-27] MEDS: PRAVASTATIN SOD 40 MG TAB PO SCH (12:12)
[2017-07-27 16:00] VITALS: BP 129/65; PULSE 102; RESP 16; TEMP 98; O2SAT 98
[2017-07-27 20:00] VITALS: BP 120/69; PULSE 96; RESP 18; TEMP 97.4; O2SAT 94
[2017-07-27] MEDS: ACETAMINOPHEN/HYDROcodone 325 MG/10 MG TAB PO PRN (20:42)
[2017-07-28] VITALS: BP 121/61; PULSE 86; RESP 18; TEMP 97.7; O2SAT 97
[2017-07-28] MEDS: LEVOTHYROXINE SODIUM 125 MCG TAB PO SCH (05:56)
[2017-07-28 08:00] VITALS: BP 117/67; PULSE 86; RESP 15; TEMP 98; O2SAT 94
[2017-07-28] MEDS: FLUTICASONE PROPIONATE 50 MCG/ACT 16 GM NASAL SPRAY EACH NARE SCH ×2 (09:00→21:00)
--- NOTE | 2017-07-28 10:00 | HHI.NSPN ---
History Chief Complaint: Incisional pain, persistent leg weakness Interval History 07/23: 71-year-old male transferred from [facility] with right iliopsoas hematoma. Patient apparently has had significant progression of right hip pain in the past 2 weeks. Approximate 10 days ago he noted onset of numbness in the right lower extremity with also apparently some weakness developing. He was seen in the emergency room on 07/21/17 with MRI revealing findings consistent with right iliopsoas hematoma versus abscess, as well as T11-12 stenosis with signal intensity changes within the cord. Mr. oquendo states that approximately a week ago, he developed progressive pain numbness and weakness in the left lower extremity. He states that he has not been able to walk for approximately a week. He has not been able to lift his left leg off the bed for 5-7 days. He complains of severe stinging-burning type pain in his feet and ankles. Subsequent admission with CT scan abdomen and pelvis revealing large right iliopsoas hematoma with retroperitoneal extension. Patient has been on Coumadin for CAD, previous CVA. Received PRBC and FFP at [facility]. The case was apparently discussed with neurosurgery at [facility] with recommendations for non-operative management. The patient was subsequently transferred to [facility] for neurosurgery evaluation. 07/24: 71-year-old male with approximately 1 week of bilateral lower extremity sensory motor deficit. Transferred from [facility] with diagnosis of right psoas abscess. Imaging studies reveal severe T11-12 stenosis with significant cord edema. Also moderate mid cervical stenosis without definite edema. The patient has no complaint of significant pain weakness or numbness in the upper extremities. 07/25: The patient went to the operating room urgently for a T11-T12 decompressive laminectomy to decompress the spinal cord. Post-operatively he was returned to the med/surg floor. 07/26: When seen this afternoon the patient is asleep but he awakens to voice. He says he feels much better. He has some mild pain to the surgical incision. He has no headache or dizziness. He denies any pain, numbness or tingling to the lower extremities. Upon examination the patient says that he is able to feel light touch. He does continue to have weakness to the lower extremities, the right being worse. 07/27: Pt awake and alert. Sitting up in chair in NAD. States strength with some improvement and he was able to stand with assistance. No radiculopathy or paresthesias in LEs. 07/28: Pt awake and alert. Sitting up on toilet. He complains of back pain and weakness in his legs. No radiculopathy or paresthesias in LEs. Review of Systems General: Negative for: fever, chills, insomnia Respiratory: Negative for: shortness of breath, cough, sputum Cardiovascular: Negative for: chest pain Gastrointestinal: Negative for: nausea, vomitting, diarrhea, constipation Exam Results Vital Signs Date Time Temp Pulse Resp B/P (MAP) Pulse Ox O2 Delivery O2 Flow Rate FiO2 07/28/17 08:00 98.0 86 15 117/67 (84) 94 07/25/17 21:38 Nasal Cannula 2 Physical Examination GENERAL: Asleep but awakens to voice. Awake & alert after that. Affect normal. Readily interacts. No apparent distress. HEENT: Normocephalic. Atraumatic. RESP: CTA bilaterally HEART: NSR no murmurs Abdomen: Soft positive bs. SKIN: No cyanosis or erythema in LEs. Incision clean and dry with steri strips in place. MUSCULOSKELETAL: Motor strength: LUE: 4+ to 5 to all major flexion & extension muscle groups, to include wrist flexors & extensors except hand intrinsics & extrinsics 3 to 3+/5. RUE: 4+ to 5 to all major flexion & extension muscle groups, to include wrist flexors & extensors except hand intrinsics & extrinsics 3 to 3+/5. LLE: Iliopsoas 3+/5, quadriceps 3+ to 4/5, hamstring 3 to 3+/5, tibialis anterior 3+/5, gastrocnemius 4+/5 & extensor hallucis longus 4+/5. RLE: Iliopsoas 1+/5, quadriceps 0/5, hamstring 0/5, tibialis anterior 1+/5, gastrocnemius 1+ to 2/5 & extensor hallucis longus 2/5. NEUROLOGICAL: Asleep but awakens to voice. Awake & alert after that. Oriented to person, place & time. Speech clear & appropriate. Follows simple commands w/o difficulty. Sensation intact to light touch to all extremities. Medical Decision Making Impression and Plan Impression: 1. 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 Thoracic myelopathy 3. Right psoas abscess. Possible right lumbosacral plexopathy 4. Cervical stenosis, primarily C5 6 level. No definite cord edema. No evidence of upper extremity radiculopathy or myelopathy. Reviewed labs for today. Haemoglobin level essentially stable. INR 1.2 & aPTT 34.7. Sodium 134. Improvement in AST & alk phos levels. () s/p: T11-T12 decompressive laminectomy for spinal cord decompression Plan: Continue with medical care. Neuro checks. SNF at discharge. Arturo Kaplan Jul 28, 2017 10:00 am
[2017-07-28] MEDS: DIVALPROEX SODIUM E.R. 250 MG TAB PO SCH ×2 (11:14→21:39)
[2017-07-28] MEDS: PRAVASTATIN SOD 40 MG TAB PO SCH (11:14)
--- NOTE | 2017-07-28 11:24 | HHI.PR ---
Subjective Remarks No new complaints Pt reports that he is moving the LLE more and has better sensation and movement in the RLE Still very weak and is max assist to get to the bedside commode Objective Vitals Vital Signs Date Time Temp Pulse Resp B/P (MAP) Pulse Ox O2 Delivery O2 Flow Rate FiO2 07/28/17 08:00 98.0 86 15 117/67 (84) 94 07/28/17 00:00 97.7 86 18 121/61 (81) 97 07/27/17 21:45 18 07/27/17 20:00 97.4 96 18 120/69 (86) 94 07/27/17 16:00 98.0 102 16 129/65 (86) 98 07/27/17 12:00 97.9 95 16 124/63 (83) 97 Result Diagram: 07/26/17 0605 07/26/17 0620 Imaging Last Impressions Thoracic Spine MRI 07/25/17 0944 Signed Impressions: Service Date/Time: July 13:13 - CONCLUSION: 1. Spinal stenosis at the T11/T12 level as described above. There do appear to be some mild edematous changes within the cord across this level. 2. Scattered degenerative changes throughout the remainder of the thoracic spine. 3. No acute compression fracture identified. Chas Jaramillo MD Thoracic Spine X-Ray 07/25/17 0000 Signed Impressions: Service Date/Time: July 18:07 - CONCLUSION: 1. Intraoperative films as above. Gilberto Dorsey MD Cervical Spine MRI 07/25/17 0000 Signed Impressions: Service Date/Time: July 13:13 - CONCLUSION: 1. Extensive degenerative disc disease through out the cervical spine. Marked loss of disc height throughout with grade 1 retrolisthesis of C4 on 5 and C5 on 6. 2. Spinal stenosis at the C5-6 level appears severe enough to compromise the cord. Spinal canal is adequate at all remaining levels. 3. In addition, there is foraminal narrowing which may be severe enough to compromise bilateral C3, bilateral C4 of the bilateral C5, bilateral C6, left C7 and left C8 nerve roots. Ancelmo Villalpando MD Lower Extremity Ultrasound 07/24/17 0000 Signed Impressions: Service Date/Time: Monday, July 24, 2017 16:57 - CONCLUSION: 1. The study is negative for deep venous thrombosis bilateral lower extremity. Paul Thomas MD Abdomen/Pelvis CT 07/24/17 0000 Signed Impressions: Service Date/Time: Monday, July 24, 2017 19:16 - CONCLUSION: Drainage catheter in the right iliac region.. No residual fluid. Izaiah Jaramillo MD FACR CT Abd/Pelvis with IV Contrast (07/21/17) @ [place] Impression: - Findings are consistent with a large right iliacus hemorrhage with a fluid/ fluid level. No active extravasation is seen. There is extension into the retroperitoneum more on the right than the left and some extension into the groin and upper thigh. The iliacus hemorrhage displaces the right psoas muscle. There is some hemorrhage extending superiorly along the posterior border of the psoas muscle. Maximum cross-sectional measurement of the iliacus hemorrhage is 7.1 x 8.7cm with a craniocaudad dimension of 13.3cm, not including the groin component. No other collections - Gallstones MRI Lumbar Spine without contrast (07/21/17) @ [place] Impression: - Abnormal exam, with the paraspinal signal alteration on the right side with involvement of the right iliacus muscle belly as well as the right psoas muscle belly nonspecific but possibly reflecting evolving active acute to subacute paraspinal abscesses, although the possibility of partial visualization of spontaneous evolving active to subacute retroperitoneal hematoma also a consideration from an imaging standpoint. Underlying complex cystic nonspecific neoplastic process not highly suspected based on the current unenhanced MRI features. Cannot entirely exclude some early subtle changes of septic arthritis with regard to the hypertrophic asymmetric appearing right L4-L5 articular facet although the possibility of asymmetric advanced arthritic changes could also account for the unenhanced MRI appearance of the right L4-L5 articular facet. - Because the changes are incompletely visualized, especially with regard to the caudal extent of the involvement of the right iliacus muscle belly, further characterization recommended with follow-up CT or MRI of the abd/pelvis with contrast with no renal contraindications exist. - Short segment of at least moderate stenosis involving the T11-T12 disc space level. Moderate central canal stenosis with cord contour remodeling noted. The associated T2 hyperintense intramedullary signal is suspicious for underlying myelomalacia as described. Objective Remarks GENERAL: This is a well-nourished, well-developed patient, in no apparent distress. SKIN: Large area of ecchymosis on the right lower flank CARDIO: Regular. RESP: CTA bilaterally. No wheezes, rales, or rhonchi. ABD: +BS, soft, non-tender, nondistended. EXT: RLE 2+ edema from the foot to the hip, palpable pedal pulse bilaterally NEURO: Pt able to move the right foot at the ankle and shake his RLE side to side, pt able to passively move his LLE more today than yesterday A/P Problem List: (1) Hematoma of right psoas region to anticoagulant therapy ICD Codes: S30.1XXA - Contusion of abdominal wall, initial encounter Status: Acute Plan: Right iliacus and right psoas muscle hematoma, likely secondary to supra- therapeutic INR - Pt is a 71 y/o WM with hyperlipidemia, HTN, hx of CAD, hx of CVA on chronic anticoagulation with Coumadin, hypothyroidism. - Pt was transferred from [facility] on 07/24/17 with a right iliopsoas muscle hematoma. - Pt has been having increased right hip pain for approx 1 week and developed "numbness" to the RLE and suffered a fall from the bedside commode to the floor. - Pt was seen in the ED at [facility] on 07/21/17. Pt was evaluated with MRI Lumbar Spine without contrast (07/21/17) --> the paraspinal signal alteration on the right side with involvement of the right iliacus muscle belly as well as the right psoas muscle belly nonspecific but possibly reflecting evolving active acute to subacute paraspinal abscesses, although the possibility of partial visualization of spontaneous evolving active to subacute retroperitoneal hematoma also a consideration from an imaging standpoint. CT Abd/Pelvis with IV Contrast (07/21/17) --> findings are consistent with a large right iliacus hemorrhage with a fluid/fluid level. No active extravasation is seen. There is extension into the retroperitoneum more on the right than the left and some extension into the groin and upper thigh. The iliacus hemorrhage displaces the right psoas muscle. There is some hemorrhage extending superiorly along the posterior border of the psoas muscle. Maximum cross-sectional measurement of the iliacus hemorrhage is 7.1 x 8.7cm with a craniocaudad dimension of 13.3cm, not including the groin component. - Pts INR was reportedly 7 on 07/21 (I do not have those records from [facility] at this time). - Pt reportedly received a transfusion of 4 units FFP and a couple units of PRBCs as his Hgb went down to 7.7 at [facility]. - Pt was transferred to [facility] on 07/24/17 as the pts attending physician at [facility] felt that the neurological function of the pts RLE was being compromised and IR tried to drain the hematoma but reportedly was only able to get about 100cc and a drain remains in place. - Consult placed to General Surgery at admission. Discussed the case with Dr. Andrews this morning, no surgical intervention planned at this time - Repeat CT Abd/pelvis with IV Contrast (07/24/17) --> Drainage catheter in the right iliac region in the center of the mass or hematoma. No residual fluid. - Bilateral LE Doppler US (07/24/17) --> Negative for DVT - Repeat INR (07/26/17) is 1.2 - Discussed the case with Dr. Andrews on 07/25/17 and drain removed by IR on 07/25/17 T11-12 canal stenosis Bilateral LE weakness - Pt had MRI Lumbar spine at [facility] on 07/21/17, results reported above. - Appreciate consult from Neurosurgery. Case discussed with Dr. Berkowitz on 07/25/17 and he reviewed MRI images from [facility] and reports concern for T11-T12 cord compression and possible infarction. - Pt underwent T11-T12 decompressive laminectomy for spinal cord decompression on 07/25/[address] Berkowitz - Post-op pain control per NSx - Vincent cath in place - Pts LE movement and paresthesia are improving - PT daily - Pt will need placement at SNF at the end of this hospitalization - Anticipate d/c to SNF in next 1-2 days Elevated LFTs - Etiology unclear - Pt with noted gallstones on CT scan - AlkPhos increased significantly from 52 to 668 on 07/25 but repeat labs on 07/26 with AlkPhos back down to 58 Hx of CVA on chronic anticoagulation with Coumadin - Pt reportedly had a previous supra-therapeutic INR and received 4 units of FFP at [facility] - Pts reported that his Coumadin was increased to 5mg po daily in May 2017 for subtherapeutic INR. Prior to that he was on 5mg 4 days per week and 1/2 tablet 2 days per week. - Cont. to hold Coumadin - INR 1.2 on 07/26/17 - Will need to discuss with NSx when pt can be started on DVT prophylaxis with likely Heparin Hypothyroidism - Cont. home meds Hyperlipidemia - Cont. home meds Hx of seizure disorder - Cont. Depakote ER 750mg po BID DVT prophylaxis with SCDs (2) HTN (hypertension) ICD Codes: I10 - Essential (primary) hypertension Status: Chronic (3) History of CVA (cerebrovascular accident) ICD Codes: Z86.73 - Personal history of transient ischemic attack (TIA), and cerebral infarction without residual deficits Status: Chronic (4) Hypothyroidism ICD Codes: E03.9 - Hypothyroidism, unspecified Status: Chronic (5) Hyperlipidemia ICD Codes: E78.5 - Hyperlipidemia, unspecified Status: Chronic (6) Hx of seizure disorder ICD Codes: Z86.69 - Personal history of other diseases of the nervous system and sense organs Status: Chronic Assessment and Plan Patient examined. Assessment and plan formulated with Rosa Díaz PA-C. I agree with the above. s/p decompressive laminectomy cont PT. will need snf. hopefully d/c by ?Saturday appears to have improving lower ext strength inc spirometer. Problem Qualifiers (1) Hematoma of right psoas region to anticoagulant therapy: Qualified Codes: S30.1XXA - Contusion of abdominal wall, initial encounter Rosa Díaz Jul 28, 2017 11:24 John Cheng MD Jul 28, 2017 12:10
[2017-07-28 12:00] VITALS: BP 121/68; PULSE 93; RESP 16; TEMP 97.8; O2SAT 94
[2017-07-28 16:00] VITALS: BP 133/81; PULSE 85; RESP 16; TEMP 97.7; O2SAT 97
[2017-07-28 20:00] VITALS: BP 135/66; PULSE 94; RESP 20; TEMP 99.3; O2SAT 94
[2017-07-28] MEDS: ACETAMINOPHEN/HYDROcodone 325 MG/10 MG TAB PO PRN (21:39)
[2017-07-29] VITALS: BP 113/64; PULSE 81; RESP 20; TEMP 98.1; O2SAT 96
[2017-07-29] MEDS: LEVOTHYROXINE SODIUM 125 MCG TAB PO SCH (05:22)
[2017-07-29 08:00] VITALS: BP 116/70; PULSE 83; RESP 17; TEMP 97.8; O2SAT 96
[2017-07-29] MEDS: FLUTICASONE PROPIONATE 50 MCG/ACT 16 GM NASAL SPRAY EACH NARE SCH ×2 (08:28→20:30)
[2017-07-29] MEDS: PRAVASTATIN SOD 40 MG TAB PO SCH (08:28)
[2017-07-29] MEDS: DIVALPROEX SODIUM E.R. 250 MG TAB PO SCH ×2 (08:28→20:29)
[2017-07-29 12:00] VITALS: BP 111/67; PULSE 97; RESP 17; TEMP 97.3; O2SAT 96
--- NOTE | 2017-07-29 13:01 | HHI.NSPN ---
History Chief Complaint: Incisional pain, persistent leg weakness Interval History 71-year-old male with approximately 1 week of bilateral lower extremity sensory motor deficit. Transferred from [facility] with diagnosis of right psoas Abscess. Imaging studies reveal severe T11-12 stenosis with significant cord edema. Also moderate mid cervical stenosis without definite edema. The patient has no complaint of significant pain weakness or numbness in the upper extremities. 07/29/2017: Awake and alert. Significant improvement in lower extremity sensorimotor function over the past 2 days. Exam Results Vital Signs Date Time Temp Pulse Resp B/P (MAP) Pulse Ox O2 Delivery O2 Flow Rate FiO2 07/29/17 12:00 97.3 97 17 111/67 (82) 96 07/25/17 21:38 Nasal Cannula 2 Intake and Output 07/29/17 07/29/17 07/30/17 08:00 16:00 00:00 Intake Total 360 ml Output Total 300 ml Balance 60 ml Physical Examination On collar. Respirations clear, nonlabored. Abdomen soft nontender Mild lower extremity edema. Sensation intact to light touch throughout the lower extremities Strength is mostly 5/5 on the flexion-extension groups left lower extremity except for possible mild weakness left iliopsoas and quadriceps. Strength is absent right iliopsoas with 1-to/5 right quadriceps and hamstrings, 4+-5/5 right tibialis anterior, gastrocsoleus No ankle clonus. Plantar response is flexor bilaterally Medical Decision Making Impression and Plan Impression: 1. Severe T11-T12 stenosis with significant cord edema-status post resistant laminectomy for significant postoperative improvement in lower extremity deficit. 2. Thoracic myelopathy 3. Right psoas abscess. Possible right lumbosacral plexopathy 4. Cervical stenosis, primarily C5 6 level. No definite cord edema. No evidence of upper extremity radiculopathy or myelopathy. Plan: Findings were discussed at length with the patient and his . Lower extremity strength especially on the left side is markedly improving. He should continue physical therapy, anticipate inpatient rehabilitation. Stable for discharge to inpatient rehabilitation for neurosurgical standpoint. Reynaldo Berkowitz MD Jul 29, 2017 13:01
[2017-07-29 16:00] VITALS: BP 132/75; PULSE 91; RESP 17; TEMP 97.1; O2SAT 93
--- NOTE | 2017-07-29 16:54 | HHI.PR ---
Subjective Remarks Pt overall is feeling better and moving his LE more Objective Vitals Vital Signs Date Time Temp Pulse Resp B/P (MAP) Pulse Ox O2 Delivery O2 Flow Rate FiO2 07/29/17 16:00 97.1 91 17 132/75 (94) 93 07/29/17 12:00 97.3 97 17 111/67 (82) 96 07/29/17 08:00 97.8 83 17 116/70 (85) 96 07/29/17 00:00 98.1 81 20 113/64 (80) 96 07/28/17 20:00 99.3 94 20 135/66 (89) 94 Result Diagram: 07/26/17 0605 07/26/17 0620 Imaging Last Impressions Thoracic Spine MRI 07/25/17 0944 Signed Impressions: Service Date/Time: July 13:13 - CONCLUSION: 1. Spinal stenosis at the T11/T12 level as described above. There do appear to be some mild edematous changes within the cord across this level. 2. Scattered degenerative changes throughout the remainder of the thoracic spine. 3. No acute compression fracture identified. Chas Jaramillo MD Thoracic Spine X-Ray 07/25/17 0000 Signed Impressions: Service Date/Time: July 18:07 - CONCLUSION: 1. Intraoperative films as above. Gilberto Dorsey MD Cervical Spine MRI 07/25/17 0000 Signed Impressions: Service Date/Time: July 13:13 - CONCLUSION: 1. Extensive degenerative disc disease through out the cervical spine. Marked loss of disc height throughout with grade 1 retrolisthesis of C4 on 5 and C5 on 6. 2. Spinal stenosis at the C5-6 level appears severe enough to compromise the cord. Spinal canal is adequate at all remaining levels. 3. In addition, there is foraminal narrowing which may be severe enough to compromise bilateral C3, bilateral C4 of the bilateral C5, bilateral C6, left C7 and left C8 nerve roots. Ancelmo Villalpando MD Lower Extremity Ultrasound 07/24/17 0000 Signed Impressions: Service Date/Time: Monday, July 24, 2017 16:57 - CONCLUSION: 1. The study is negative for deep venous thrombosis bilateral lower extremity. Paul Thomas MD Abdomen/Pelvis CT 07/24/17 0000 Signed Impressions: Service Date/Time: Monday, July 24, 2017 19:16 - CONCLUSION: Drainage catheter in the right iliac region.. No residual fluid. Izaiah Jaramillo MD FACR CT Abd/Pelvis with IV Contrast (07/21/17) @ [facility] Impression: - Findings are consistent with a large right iliacus hemorrhage with a fluid/ fluid level. No active extravasation is seen. There is extension into the retroperitoneum more on the right than the left and some extension into the groin and upper thigh. The iliacus hemorrhage displaces the right psoas muscle. There is some hemorrhage extending superiorly along the posterior border of the psoas muscle. Maximum cross-sectional measurement of the iliacus hemorrhage is 7.1 x 8.7cm with a craniocaudad dimension of 13.3cm, not including the groin component. No other collections - Gallstones MRI Lumbar Spine without contrast (07/21/17) @ [facility] Impression: - Abnormal exam, with the paraspinal signal alteration on the right side with involvement of the right iliacus muscle belly as well as the right psoas muscle belly nonspecific but possibly reflecting evolving active acute to subacute paraspinal abscesses, although the possibility of partial visualization of spontaneous evolving active to subacute retroperitoneal hematoma also a consideration from an imaging standpoint. Underlying complex cystic nonspecific neoplastic process not highly suspected based on the current unenhanced MRI features. Cannot entirely exclude some early subtle changes of septic arthritis with regard to the hypertrophic asymmetric appearing right L4-L5 articular facet although the possibility of asymmetric advanced arthritic changes could also account for the unenhanced MRI appearance of the right L4-L5 articular facet. - Because the changes are incompletely visualized, especially with regard to the caudal extent of the involvement of the right iliacus muscle belly, further characterization recommended with follow-up CT or MRI of the abd/pelvis with contrast with no renal contraindications exist. - Short segment of at least moderate stenosis involving the T11-T12 disc space level. Moderate central canal stenosis with cord contour remodeling noted. The associated T2 hyperintense intramedullary signal is suspicious for underlying myelomalacia as described. Objective Remarks GENERAL: This is a well-nourished, well-developed patient, in no apparent distress. SKIN: Large area of ecchymosis on the right lower flank CARDIO: Regular. RESP: CTA bilaterally. No wheezes, rales, or rhonchi. ABD: +BS, soft, non-tender, nondistended. EXT: RLE 2+ edema from the foot to the hip, improving, palpable pedal pulse bilaterally NEURO: Pt able to move the right foot at the ankle and shake his RLE side to side, pt able to passively move his LLE more today than yesterday A/P Problem List: (1) Hematoma of right psoas region to anticoagulant therapy ICD Codes: S30.1XXA - Contusion of abdominal wall, initial encounter Status: Acute Plan: T11-12 canal stenosis Bilateral LE weakness - Pt had MRI Lumbar spine at [facility] on 07/21/17, results reported above. - Appreciate consult from Neurosurgery. Case discussed with Dr. Berkowitz on 07/25/17 and he reviewed MRI images from [facility] and reports concern for T11-T12 cord compression and possible infarction. - Pt underwent T11-T12 decompressive laminectomy for spinal cord decompression on 07/25/[address] Berkowitz - Post-op pain control per NSx - Vincent cath removed 07/28 - Pts LE movement and paresthesia are improving - PT daily - Pt has been accepted at [facility] - Anticipate d/c in AM to SNF Right iliacus and right psoas muscle hematoma, likely secondary to supra- therapeutic INR - Pt is a 71 y/o WM with hyperlipidemia, HTN, hx of CAD, hx of CVA on chronic anticoagulation with Coumadin, hypothyroidism. - Pt was transferred from [facility] on 07/24/17 with a right iliopsoas muscle hematoma. - Pt has been having increased right hip pain for approx 1 week and developed "numbness" to the RLE and suffered a fall from the bedside commode to the floor. - Pt was seen in the ED at [facility] on 07/21/17. Pt was evaluated with MRI Lumbar Spine without contrast (07/21/17) --> the paraspinal signal alteration on the right side with involvement of the right iliacus muscle belly as well as the right psoas muscle belly nonspecific but possibly reflecting evolving active acute to subacute paraspinal abscesses, although the possibility of partial visualization of spontaneous evolving active to subacute retroperitoneal hematoma also a consideration from an imaging standpoint. CT Abd/Pelvis with IV Contrast (07/21/17) --> findings are consistent with a large right iliacus hemorrhage with a fluid/fluid level. No active extravasation is seen. There is extension into the retroperitoneum more on the right than the left and some extension into the groin and upper thigh. The iliacus hemorrhage displaces the right psoas muscle. There is some hemorrhage extending superiorly along the posterior border of the psoas muscle. Maximum cross-sectional measurement of the iliacus hemorrhage is 7.1 x 8.7cm with a craniocaudad dimension of 13.3cm, not including the groin component. - Pts INR was reportedly 7 on 07/21 (I do not have those records from [facility] at this time). - Pt reportedly received a transfusion of 4 units FFP and a couple units of PRBCs as his Hgb went down to 7.7 at [facility]. - Pt was transferred to [facility] on 07/24/17 as the pts attending physician at [facility] felt that the neurological function of the pts RLE was being compromised and IR tried to drain the hematoma but reportedly was only able to get about 100cc and a drain remains in place. - Consult placed to General Surgery at admission. Discussed the case with Dr. Andrews this morning, no surgical intervention planned at this time - Repeat CT Abd/pelvis with IV Contrast (07/24/17) --> Drainage catheter in the right iliac region in the center of the mass or hematoma. No residual fluid. - Bilateral LE Doppler US (07/24/17) --> Negative for DVT - Repeat INR (07/26/17) is 1.2 - Discussed the case with Dr. Andrews on 07/25/17 and drain removed by IR on 07/25/17 Elevated LFTs - Etiology unclear - Pt with noted gallstones on CT scan - AlkPhos increased significantly from 52 to 668 on 07/25 but repeat labs on 07/26 with AlkPhos back down to 58 Hx of CVA on chronic anticoagulation with Coumadin - Pt reportedly had a previous supra-therapeutic INR and received 4 units of FFP at [facility] - Pts reported that his Coumadin was increased to 5mg po daily in May 2017 for subtherapeutic INR. Prior to that he was on 5mg 4 days per week and 1/2 tablet 2 days per week. - Cont. to hold Coumadin - INR 1.2 on 07/26/17 - Discuss with NSx and they confirm that the pt can be started on DVT prophylaxis which can be continued during rehab Hypothyroidism - Cont. home meds Hyperlipidemia - Cont. home meds Hx of seizure disorder - Cont. Depakote ER 750mg po BID DVT prophylaxis with SCDs (2) HTN (hypertension) ICD Codes: I10 - Essential (primary) hypertension Status: Chronic (3) History of CVA (cerebrovascular accident) ICD Codes: Z86.73 - Personal history of transient ischemic attack (TIA), and cerebral infarction without residual deficits Status: Chronic (4) Hyperlipidemia ICD Codes: E78.5 - Hyperlipidemia, unspecified Status: Chronic (5) Hx of seizure disorder ICD Codes: Z86.69 - Personal history of other diseases of the nervous system and sense organs Status: Chronic Assessment and Plan Patient examined. Assessment and plan formulated with Rosa Díaz PA-C. I agree with the above. s/p decompressive laminectomy cont PT. will need snf. Problem Qualifiers (1) Hematoma of right psoas region to anticoagulant therapy: Qualified Codes: S30.1XXA - Contusion of abdominal wall, initial encounter Rosa Díaz Jul 29, 2017 16:54 Reddy Peralta DO Aug 02, 2017 23:13
--- NOTE | 2017-07-29 16:55 | HHI.DCPOC ---
Discharge Care Plan Diagnosis: (1) Thoracic stenosis (2) Thoracic myelopathy (3) Hematoma of right psoas region to anticoagulant therapy (4) Hx of seizure disorder (5) History of CVA (cerebrovascular accident) (6) HTN (hypertension) (7) Hypothyroidism (8) Hyperlipidemia Goals to Promote Your Health * To prevent worsening of your condition and complications * To maintain your health at the optimal level Directions to Meet Your Goals Take your medications as prescribed Follow your dietary instruction Follow activity as directed Keep your appointments as scheduled Take your immunizations and boosters as scheduled If your symptoms worsen call your PCP, if no PCP go to Urgent Care Center or Emergency Room Smoking is Dangerous to Your Health. Avoid second hand smoke Call the 24-hour hour crisis hotline for domestic abuse at Rosa Díaz Jul 29, 2017 16:55 Reddy Peralta DO Aug 02, 2017 23:15
[2017-07-29] MEDS ORDERED: TEMA15CA PO (17:19)
[2017-07-29] MEDS ORDERED: HYDR-3366 PO (17:19)
[2017-07-29 20:00] VITALS: BP 120/74; PULSE 88; RESP 20; TEMP 98.6; O2SAT 95
[2017-07-29] MEDS: HEPARIN SODIUM - SQ 10,000 UNITS/ML VIAL SQ SCH (20:30)
[2017-07-30] VITALS: BP 125/65; PULSE 83; RESP 20; TEMP 98.4; O2SAT 96
[2017-07-30] MEDS: LEVOTHYROXINE SODIUM 125 MCG TAB PO SCH (05:00)
[2017-07-30] MEDS: ACETAMINOPHEN/HYDROcodone 325 MG/10 MG TAB PO PRN ×2 (05:00→08:52)
[2017-07-30 06:00] VITALS: RESP 18
[2017-07-30] MEDS: PRAVASTATIN SOD 40 MG TAB PO SCH (08:42)
[2017-07-30] MEDS: DIVALPROEX SODIUM E.R. 250 MG TAB PO SCH (08:44)
[2017-07-30] MEDS: HEPARIN SODIUM - SQ 10,000 UNITS/ML VIAL SQ SCH (08:45)
[2017-07-30] MEDS ORDERED: ENOX30P SQ (08:56)
[2017-07-30] MEDS: FLUTICASONE PROPIONATE 50 MCG/ACT 16 GM NASAL SPRAY EACH NARE SCH (09:00)
--- NOTE | 2017-07-30 09:11 | HHI.DS ---
Discharge Summary Admission Date Jul 24, 2017 at 03:55 Discharge Date: Jul 30, 2017 Admitting Diagnosis Iliacus and psoas hematoma (1) Thoracic myelopathy Diagnosis: Principal ICD Codes: M47.14 - Other spondylosis with myelopathy, thoracic region (2) Thoracic stenosis Diagnosis: Principal ICD Codes: M48.04 - Spinal stenosis, thoracic region (3) Hematoma of right psoas region to anticoagulant therapy Diagnosis: Secondary ICD Codes: S30.1XXA - Contusion of abdominal wall, initial encounter Status: Acute (4) HTN (hypertension) Diagnosis: Secondary ICD Codes: I10 - Essential (primary) hypertension Status: Chronic (5) History of CVA (cerebrovascular accident) Diagnosis: Secondary ICD Codes: Z86.73 - Personal history of transient ischemic attack (TIA), and cerebral infarction without residual deficits Status: Chronic (6) Hypothyroidism Diagnosis: Secondary ICD Codes: E03.9 - Hypothyroidism, unspecified Status: Chronic (7) Hyperlipidemia Diagnosis: Secondary ICD Codes: E78.5 - Hyperlipidemia, unspecified Status: Chronic (8) Hx of seizure disorder Diagnosis: Secondary ICD Codes: Z86.69 - Personal history of other diseases of the nervous system and sense organs Status: Chronic Consultants Dr. Reynaldo Berkowitz - Neurosurgery Dr. Galileo Andrews - General surgery Brief History Mr. Navarrete is a 71 y/o WM with hyperlipidemia, HTN, hx of CAD, hx of CVA on chronic anticoagulation with Coumadin, hypothyroidism. Pt was transferred from [facility] on 07/24/17 with a right iliacus and right psoas muscle hematoma. According to the pt and his the pt has complained of right hip pain for some time but more recently, within the last week or so, this has been significantly worsening. He reportedly had an outpt Xray of right hip reportedly fine. Last he had increased pain in the right hip and called ortho and was given a prescription for Hydrocodone which provided no relief. Pt went to the ED at [facility] on 07/19/17 and was reportedly given pain meds and sent home. Later that evening he complained of his right leg going numb. After that began he was trying to transfer from the bed side commode to the bed and he slid down the side of the bed to the floor. Pts noted that he started to develop bruising on the right flank after that fall. The pts pain increased in the right hip the following day and he went back to the ED at [facility] on 07/21/17. In the ED the pt was evaluated with MRI Lumbar Spine without contrast (07/21/17) which noted an abnormal exam, with the paraspinal signal alteration on the right side with involvement of the right iliacus muscle belly as well as the right psoas muscle belly nonspecific but possibly reflecting evolving active acute to subacute paraspinal abscesses, although the possibility of partial visualization of spontaneous evolving active to subacute retroperitoneal hematoma also a consideration from an imaging standpoint. Pt was admitted. CT Abd/Pelvis with IV Contrast (07/21/17) noted findings are consistent with a large right iliacus hemorrhage with a fluid /fluid level. No active extravasation is seen. There is extension into the retroperitoneum more on the right than the left and some extension into the groin and upper thigh. The iliacus hemorrhage displaces the right psoas muscle. There is some hemorrhage extending superiorly along the posterior border of the psoas muscle. Maximum cross-sectional measurement of the iliacus hemorrhage is 7.1 x 8.7cm with a craniocaudad dimension of 13.3cm, not including the groin component. His tells me that when he went back to the ED the second time his INR was reportedly 7. Pt reportedly received a transfusion of 4 units FFP and a couple units of PRBCs as his Hgb went down to 7.7 at [facility]. Pt Coumadin was increased to 5mg po daily in May 2017 for subtherapeutic INR. Prior to that he was on 5mg 4 days per week and 1/2 tablet 2 days per week. I do not have records yet from his hospitalization at [facility] but reportedly the attending physician discussed the case with Neurosurgery and General Surgery but no surgical intervention was recommended at that time. [facility] was contacted as it was felt that the pts neurological function in the RLE was being compromised and IR tried to drain the hematoma but reportedly was only able to get about 100cc and a drain remains in place. Pt was transferred to [facility] on 07/24/17 and consult placed to General Surgery. Pt is a poor historian. The majority of the history was obtained from the pts over the phone and in discussion with our overnight covering physician, Dr. Courtney. CBC/BMP: 07/26/17 0605 07/26/17 0620 Imaging Last Impressions Thoracic Spine MRI 07/25/17 0944 Signed Impressions: Service Date/Time: July 13:13 - CONCLUSION: 1. Spinal stenosis at the T11/T12 level as described above. There do appear to be some mild edematous changes within the cord across this level. 2. Scattered degenerative changes throughout the remainder of the thoracic spine. 3. No acute compression fracture identified. Chas Jaramillo MD Thoracic Spine X-Ray 07/25/17 0000 Signed Impressions: Service Date/Time: July 18:07 - CONCLUSION: 1. Intraoperative films as above. Gilberto Dorsey MD Cervical Spine MRI 07/25/17 0000 Signed Impressions: Service Date/Time: July 13:13 - CONCLUSION: 1. Extensive degenerative disc disease through out the cervical spine. Marked loss of disc height throughout with grade 1 retrolisthesis of C4 on 5 and C5 on 6. 2. Spinal stenosis at the C5-6 level appears severe enough to compromise the cord. Spinal canal is adequate at all remaining levels. 3. In addition, there is foraminal narrowing which may be severe enough to compromise bilateral C3, bilateral C4 of the bilateral C5, bilateral C6, left C7 and left C8 nerve roots. Ancelmo Villalpando MD Lower Extremity Ultrasound 07/24/17 0000 Signed Impressions: Service Date/Time: Monday, July 24, 2017 16:57 - CONCLUSION: 1. The study is negative for deep venous thrombosis bilateral lower extremity. Paul Thomas MD Abdomen/Pelvis CT 07/24/17 0000 Signed Impressions: Service Date/Time: Monday, July 24, 2017 19:16 - CONCLUSION: Drainage catheter in the right iliac region.. No residual fluid. Izaiah Jaramillo MD FACR CT Abd/Pelvis with IV Contrast (07/21/17) @ [place] Impression: - Findings are consistent with a large right iliacus hemorrhage with a fluid/ fluid level. No active extravasation is seen. There is extension into the retroperitoneum more on the right than the left and some extension into the groin and upper thigh. The iliacus hemorrhage displaces the right psoas muscle. There is some hemorrhage extending superiorly along the posterior border of the psoas muscle. Maximum cross-sectional measurement of the iliacus hemorrhage is 7.1 x 8.7cm with a craniocaudad dimension of 13.3cm, not including the groin component. No other collections - Gallstones MRI Lumbar Spine without contrast (07/21/17) @ [facility] Impression: - Abnormal exam, with the paraspinal signal alteration on the right side with involvement of the right iliacus muscle belly as well as the right psoas muscle belly nonspecific but possibly reflecting evolving active acute to subacute paraspinal abscesses, although the possibility of partial visualization of spontaneous evolving active to subacute retroperitoneal hematoma also a consideration from an imaging standpoint. Underlying complex cystic nonspecific neoplastic process not highly suspected based on the current unenhanced MRI features. Cannot entirely exclude some early subtle changes of septic arthritis with regard to the hypertrophic asymmetric appearing right L4-L5 articular facet although the possibility of asymmetric advanced arthritic changes could also account for the unenhanced MRI appearance of the right L4-L5 articular facet. - Because the changes are incompletely visualized, especially with regard to the caudal extent of the involvement of the right iliacus muscle belly, further characterization recommended with follow-up CT or MRI of the abd/pelvis with contrast with no renal contraindications exist. - Short segment of at least moderate stenosis involving the T11-T12 disc space level. Moderate central canal stenosis with cord contour remodeling noted. The associated T2 hyperintense intramedullary signal is suspicious for underlying myelomalacia as described. PE at Discharge GENERAL: This is a well-nourished, well-developed patient, in no apparent distress. SKIN: Large area of ecchymosis on the right lower flank CARDIO: Regular. RESP: CTA bilaterally. No wheezes, rales, or rhonchi. ABD: +BS, soft, non-tender, nondistended. EXT: RLE 2+ edema from the foot to the hip, improving, palpable pedal pulse bilaterally NEURO: Pt able to move the right foot at the ankle and shake his RLE side to side, pt able to passively move his LLE more today than yesterday Hospital Course Right iliacus and right psoas muscle hematoma, likely secondary to supra- therapeutic INR Pt is a 71 y/o WM with hyperlipidemia, HTN, hx of CAD, hx of CVA on chronic anticoagulation with Coumadin, hypothyroidism. Pt was transferred from [facility] on 07/24/17 with a right iliopsoas muscle hematoma. Pt has been having increased right hip pain for approx 1 week and developed "numbness" to the RLE and suffered a fall from the bedside commode to the floor. Pt was seen in the ED at [facility] on 07/21/17. Pt was evaluated with MRI Lumbar Spine without contrast (07/21/17) --> the paraspinal signal alteration on the right side with involvement of the right iliacus muscle belly as well as the right psoas muscle belly nonspecific but possibly reflecting evolving active acute to subacute paraspinal abscesses, although the possibility of partial visualization of spontaneous evolving active to subacute retroperitoneal hematoma also a consideration from an imaging standpoint. CT Abd/Pelvis with IV Contrast (07/21/17 ) --> findings are consistent with a large right iliacus hemorrhage with a fluid /fluid level. No active extravasation is seen. There is extension into the retroperitoneum more on the right than the left and some extension into the groin and upper thigh. The iliacus hemorrhage displaces the right psoas muscle. There is some hemorrhage extending superiorly along the posterior border of the psoas muscle. Maximum cross-sectional measurement of the iliacus hemorrhage is 7.1 x 8.7cm with a craniocaudad dimension of 13.3cm, not including the groin component. Pts INR was reportedly 7 on 07/21 (I do not have those records from [facility] at this time). Pt reportedly received a transfusion of 4 units FFP and a couple units of PRBCs as his Hgb went down to 7.7 at [facility]. Pt was transferred to [facility] on 07/24/17 as the pts attending physician at [facility] felt that the neurological function of the pts RLE was being compromised and IR tried to drain the hematoma but reportedly was only able to get about 100cc and a drain remains in place. Consult placed to General Surgery at admission. Discussed the case with Dr. Andrews, no surgical intervention planned at this time. Repeat CT Abd/pelvis with IV Contrast (07/24/17) --> Drainage catheter in the right iliac region in the center of the mass or hematoma. No residual fluid. Bilateral LE Doppler US (07/24/17) --> Negative for DVT. Repeat INR (07/26/17) is 1.2. Discussed the case with Dr. Andrews on 07/25/17 and drain removed by IR on 07/25/17. Pt will be continued on Lovenox 30mg SQ daily x 7 days for DVT prophylaxis while at rehab but continuation of this and resuming his Coumadin will be discussed with his attending physician at the rehab center as the pt will likely need re-imaging in the next few weeks. T11-12 canal stenosis Bilateral LE weakness Pt had MRI Lumbar spine at [facility] on 07/21/17, results reported above. Neurosurgery was consulted at admission. Case discussed with Dr. Berkowitz on 07/25/17 and he reviewed MRI images from [facility] and reports concern for T11-T12 cord compression and possible infarction. Pt had minimal movement of his toes on the RLE and significant pain in bilateral LE inhibiting any movement of the LLE at admission. Pt underwent T11-T12 decompressive laminectomy for spinal cord decompression on 07/25/[address] Berkowitz. Vincent cath removed 07/28. Pts LE movement and paresthesia are improving. He will continue PT daily at rehab. Pt will need a two week followup with Dr. Berkowitz. Elevated LFTs Etiology unclear. Pt with noted gallstones on CT scan but no complaints of any abdominal pain. AlkPhos increased significantly from 52 to 668 on 07/25 but repeat labs on 07/26 with AlkPhos back down to 58. This can be followed up on as an outpt. Hx of CVA on chronic anticoagulation with Coumadin Pt reportedly had a previous supra-therapeutic INR and received [address] [facility]. Pts reported that his Coumadin was increased to 5mg po daily in May 2017 for subtherapeutic INR. Prior to that he was on 5mg 4 days per week and 1/2 tablet 2 days per week. Cont. to hold Coumadin. INR 1.2 on 07/26. Discuss with NSx on 07/29 and they confirm that the pt can be started on DVT prophylaxis which can be continued during rehab Hypothyroidism Cont. home meds Hyperlipidemia Cont. home meds Hx of seizure disorder Cont. Depakote ER 750mg po BID Pt Condition on Discharge: Stable Discharge Disposition: Discharge to SNF Discharge Instructions DIET: Follow Instructions for: Heart Healthy Diet Activities you can perform: Regular-No Restrictions Follow up Referrals: Neurosurgery - 2 Weeks with Reynaldo Berkowitz MD PCP Follow-up - [address] Edmund Intahar New Medications: Enoxaparin Inj (Lovenox Inj) 30 Mg/0.3 Ml Syr 30 MG SQ DAILY for Blood Clot Prevention for 7 Days, SYRINGE 0 Refills Continued Medications: Divalproex ER (Depakote ER) 250 Mg Ganesh 750 MG PO BID for Control Seizures, #30 TAB 0 Refills Fluticasone Nasal [place] (Flonase Nasal [place]) 50 Mcg/Act [place] 50 MCG EACH NARE BID for Allergies, #1 BOTTLE 0 Refills Hydrocodone-Acetaminophen (Flushing) 10-325 Mg Tab 1 TAB PO Q6H PRN for PAIN, #30 TAB 0 Refills (This prescription has been renewed ) Levothyroxine (Levothyroxine) 125 Mcg Tab 125 MCG PO DAILY for Thyroid, #30 TAB 0 Refills Lovastatin (Lovastatin) 40 Mg Tab 40 MG PO DAILY for Cholesterol Management, #30 TAB 0 Refills Ropinirole (Ropinirole) 0.25 Mg Tab 0.25 MG PO HS PRN for RESTLESSNESS, #30 TAB 0 Refills Temazepam (Temazepam) 15 Mg Cap 15 MG PO HS PRN for INSOMNIA, #30 CAP 0 Refills (This prescription has been renewed) Discontinued Medications: Prednisone (Prednisone) 10 Mg Tab 10 MG PO BID, TAB 0 Refills Warfarin (Coumadin) 5 Mg Tab 5 MG PO DAILY for Blood Clot Prevention, #30 TAB 0 Refills Additional Information Patient examined. Assessment and plan formulated with Tia Hassan PA-C. I agree with the above. Rosa Díaz Jul 30, 2017 09:11 Reddy Peralta DO Aug 02, 2017 23:14
== END 2017-07-30 12:47 | DRG 518 ==
LOC: N07B 07-24 03:55
PROVIDERS: ADMIT Hospitalist; ATTEND Hospitalist
PROC: 00NX0ZZ Release Thoracic Spinal Cord, Open Approach (ICD-10-PCS; principal; 2017-07-25 15:59)
DX: M47.14 Other spondylosis with myelopathy, thoracic region (principal); G95.19 Other vascular myelopathies; K68.12 Psoas muscle abscess; G95.89 Other specified diseases of spinal cord; G82.20 Paraplegia, unspecified; M48.04 Spinal stenosis, thoracic region; M48.02 Spinal stenosis, cervical region; M79.81 Nontraumatic hematoma of soft tissue; G40.909 Epilepsy, unspecified, not intractable, without status epilepticus; I10 Essential (primary) hypertension; T45.515A Adverse effect of anticoagulants, initial encounter; Y92.009 Unspecified place in unspecified non-institutional (private) residence as the place of occurrence of the external cause; S30.1XXA Contusion of abdominal wall, initial encounter; S70.11XA Contusion of right thigh, initial encounter; I25.10 Atherosclerotic heart disease of native coronary artery without angina pectoris; E03.9 Hypothyroidism, unspecified; G25.81 Restless legs syndrome; E78.5 Hyperlipidemia, unspecified; G47.33 Obstructive sleep apnea (adult) (pediatric); Z96.653 Presence of artificial knee joint, bilateral; Z96.641 Presence of right artificial hip joint; R79.1 Abnormal coagulation profile; K80.20 Calculus of gallbladder without cholecystitis without obstruction; Z87.891 Personal history of nicotine dependence; Z86.73 Personal history of transient ischemic attack (TIA), and cerebral infarction without residual deficits; Z79.01 Long term (current) use of anticoagulants; Z86.14 Personal history of Methicillin resistant Staphylococcus aureus infection
CPT/HCPCS: 72020; 72141; 72146; 74177; 76000; 80053; 80164; 83735; 85025; 85610; 85730; 86850; 86900; 86901; 93005; 93970; 94150; C9290; J0131; J0690; J1580; J1644; J2270; J2370; J3010; J3480; J7030; J7040; J7050; J7120; Q9963; Q9967

== ENCOUNTER 2017-08-23 15:20 | Inpatient (IN) | payer MEDICARE ==
[2017-08-23] MEDS ORDERED: BISACODYL 10 MG SUPP RECTAL (16:45)
[2017-08-23] MEDS ORDERED: ONDANSETRON HCL 4 MG/2 ML VIAL IV PUSH (17:15)
[2017-08-23] MEDS: GADODIAMIDE PF 287 MG/ML 20 ML VIAL (for RAD MRI) IVCONTRAST (20:45)
[2017-08-23 21:04] LABS: ALBUMIN 3.2 GM/DL (3.4-5.0); ANION GAP 11 MEQ/L (5-15); AST (GOT) 14 U/L (15-37); BICARBONATE 27.2 MEQ/L (21.0-32.0); BLOOD UREA NITROGEN 12 MG/DL (7-18); CALCIUM 9.4 MG/DL (8.5-10.1); CHLORIDE 98 MEQ/L (98-107); CREATININE 0.89 MG/DL (0.60-1.30); GLOMERULAR FILTRATION RATE 84 ML/MIN (>89); GLUCOSE,RANDOM 87 MG/DL (74-106); POTASSIUM 3.5 MEQ/L (3.5-5.1); SODIUM (NA) 136 MEQ/L (136-145)
[2017-08-23 21:05] LABS: ALT (GPT) 12 U/L (12-78)
[2017-08-23 21:07] LABS: ALKALINE PHOSPHATASE 63 U/L (45-117); TOTAL BILIRUBIN ADULT 0.3 MG/DL (0.2-1.0); TOTAL PROTEIN 9.4 GM/DL (6.4-8.2)
[2017-08-23 21:30] LABS: AUTOMATED NEUTROPHIL # 5.2 TH/MM3 (1.8-7.7); BASOPHIL # 0.1 TH/MM3 (0-0.2); BASOPHIL % 1.4 % (0.0-2.0); EOSINOPHIL # 0.2 TH/MM3 (0-0.4); EOSINOPHIL % 2.3 % (0.0-4.0); HEMO FLAGS DIFF FINAL; HEMOGLOBIN 11.1 GM/DL (13.0-17.0); LYMPH % 23.1 % (9.0-44.0); MEAN CELL VOLUME 90.3 FL (80.0-100.0); MEAN CORPUSCULAR HEMOGLOBIN 29.5 PG (27.0-34.0); MEAN CORPUSCULAR HGB CONC 32.7 % (32.0-36.0); MEAN PLATELET VOLUME 7.5 FL (7.0-11.0); MONO % 12.5 % (0.0-8.0); MONOCYTE # 1.1 TH/MM3 (0-0.9); NEUT % 60.7 % (16.0-70.0); PLATELET COUNT 477 TH/MM3 (150-450); RED BLOOD COUNT 3.76 MIL/MM3 (4.50-5.90); RED CELL DISTRIBUTION WIDTH 15.4 % (11.6-17.2); WHITE BLOOD COUNT 8.5 TH/MM3 (4.0-11.0)
[2017-08-23] MEDS: ACETAMINOPHEN/HYDROcodone 325 MG/5 MG TAB PO (22:35)
[2017-08-23] MEDS: DIVALPROEX SODIUM DELAYED RELEASE 250 MG TAB PO (22:36)
[2017-08-23] MEDS: DOCUSATE SODIUM 100 MG CAP PO (22:36)
[2017-08-23] MEDS: TEMAZEPAM 15 MG CAP PO (23:48)
[2017-08-24] MEDS: LEVOTHYROXINE SODIUM 125 MCG TAB PO (05:46)
[2017-08-24] MEDS: DIVALPROEX SODIUM DELAYED RELEASE 250 MG TAB PO (10:02)
[2017-08-24] MEDS: DOCUSATE SODIUM 100 MG CAP PO ×2 (10:02→20:28)
[2017-08-24 11:50] LABS: C-REACTIVE PROTEIN 4.93 MG/DL (0.00-0.30)
[2017-08-24] MEDS ORDERED: HEPARIN-D5W 25,000 U/250 ML 250 ML IV (13:45)
[2017-08-24 14:16] LABS: HEMATOCRIT 32.3 % (39.0-51.0); HEMOGLOBIN 10.6 GM/DL (13.0-17.0); MEAN CELL VOLUME 89.7 FL (80.0-100.0); MEAN CORPUSCULAR HEMOGLOBIN 29.4 PG (27.0-34.0); MEAN CORPUSCULAR HGB CONC 32.8 % (32.0-36.0); MEAN PLATELET VOLUME 6.9 FL (7.0-11.0); PLATELET COUNT 478 TH/MM3 (150-450); RED CELL DISTRIBUTION WIDTH 15.8 % (11.6-17.2); REVIEW FLAG FINAL; WHITE BLOOD COUNT 8.5 TH/MM3 (4.0-11.0)
[2017-08-24 14:27] LABS: APTT (PATIENT) 28.8 SEC (24.3-30.1); INTERNATIONAL NORMALIZED RATIO 1.1 RATIO; PROTHROMBIN TIME - PATIENT 11.4 SEC (9.8-11.6)
[2017-08-24] MEDS: guaiFENesin E.R. 600 MG TAB PO ×2 (15:17→20:28)
[2017-08-24] MEDS: DIATRIZOATE MEGLUM/DIATRIZOATE SOD 9 ML CUP PO (15:17)
[2017-08-24] MEDS: HEPARIN-D5W 25,000 U/250 ML 250 ML IV ×2 (15:28→15:38)
[2017-08-24] MEDS ORDERED: HEPARIN - 10,000 UNITS/ML IV ADDITIVE IV PUSH (19:45)
[2017-08-24] MEDS ORDERED: HEPARIN SODIUM - IV 10,000 UNITS/10 ML VIAL IV PUSH (19:45)
[2017-08-24] MEDS: IOHEXOL 350 MG/ML 10 ML VIAL (for RAD DIAG) IVCONTRAST (19:53)
[2017-08-24] MEDS: DIVALPROEX SODIUM E.R. 250 MG TAB PO (20:28)
[2017-08-24] MEDS: TEMAZEPAM 15 MG CAP PO (22:08)
[2017-08-24] MEDS: ACETAMINOPHEN/HYDROcodone 325 MG/5 MG TAB PO (22:08)
[2017-08-24 23:02] LABS: APTT (PATIENT) 42.9 SEC (24.3-30.1)
[2017-08-25 04:33] LABS: APTT (PATIENT) 40.6 SEC (24.3-30.1)
[2017-08-25] MEDS: LEVOTHYROXINE SODIUM 125 MCG TAB PO (06:17)
[2017-08-25] MEDS: HEPARIN-D5W 25,000 U/250 ML 250 ML IV (07:03)
[2017-08-25] MEDS: DOCUSATE SODIUM 100 MG CAP PO ×2 (08:19→20:31)
[2017-08-25] MEDS: guaiFENesin E.R. 600 MG TAB PO ×2 (08:19→20:28)
[2017-08-25] MEDS: DIVALPROEX SODIUM E.R. 250 MG TAB PO ×2 (08:19→20:28)
[2017-08-25] MEDS: ACETAMINOPHEN/HYDROcodone 325 MG/5 MG TAB PO (22:13)
[2017-08-25] MEDS: TEMAZEPAM 15 MG CAP PO (22:16)
[2017-08-26] MEDS: LEVOTHYROXINE SODIUM 125 MCG TAB PO (06:00)
[2017-08-26] MEDS: DIVALPROEX SODIUM E.R. 250 MG TAB PO ×2 (08:50→21:02)
[2017-08-26] MEDS: guaiFENesin E.R. 600 MG TAB PO ×2 (08:50→21:01)
[2017-08-26] MEDS: DOCUSATE SODIUM 100 MG CAP PO ×2 (08:53→21:00)
[2017-08-26] MEDS: fentaNYL CITRATE 250 MCG/5 ML AMP (11:00)
[2017-08-26] MEDS: MIDAZOLAM HCL 5 MG/5 ML VIAL (11:00)
[2017-08-26] MEDS: LIDOCAINE HCL 1% 10 ML VIAL OTHER (11:32)
[2017-08-26] MEDS ORDERED: Vancomycin Consult Pharmacy 1 EA OTHER (15:15)
[2017-08-26] MEDS: VANCOMYCIN INJ 1,750 MG in SODIUM CHLORID 0.9% 500 ML INJ 500 ML IV (16:09)
[2017-08-26 17:39] LABS: HEMOGLOBIN 10.5 GM/DL (13.0-17.0); MEAN CELL VOLUME 90.4 FL (80.0-100.0); MEAN CORPUSCULAR HEMOGLOBIN 29.6 PG (27.0-34.0); MEAN CORPUSCULAR HGB CONC 32.8 % (32.0-36.0); MEAN PLATELET VOLUME 6.9 FL (7.0-11.0); PLATELET COUNT 518 TH/MM3 (150-450); RED BLOOD COUNT 3.54 MIL/MM3 (4.50-5.90); RED CELL DISTRIBUTION WIDTH 15.4 % (11.6-17.2); REVIEW FLAG FINAL; WHITE BLOOD COUNT 6.7 TH/MM3 (4.0-11.0)
[2017-08-26 17:46] LABS: APTT (PATIENT) 25.8 SEC (24.3-30.1); INTERNATIONAL NORMALIZED RATIO 1.1 RATIO; PROTHROMBIN TIME - PATIENT 11.1 SEC (9.8-11.6)
[2017-08-26] MEDS: cefTAZidime INJ 2,000 MG in SODIUM CHLORIDE 0.9% INJ 100 ML IV (18:30)
[2017-08-26] MEDS: HEPARIN-D5W 25,000 U/250 ML 250 ML IV (18:47)
[2017-08-26] MEDS: TEMAZEPAM 15 MG CAP PO (22:27)
[2017-08-26] MEDS: ACETAMINOPHEN/HYDROcodone 325 MG/5 MG TAB PO (22:27)
[2017-08-26] MEDS ORDERED: CHLORHEXIDINE GLUCONATE 2 % 1 PACK (2 CLOTHS) TOPICAL (23:45)
[2017-08-26] MEDS ORDERED: POVIDONE IODINE 5% (ANTISEPSIS KIT) 4 APPLICATIONS EACH NARE (23:45)
[2017-08-26] MEDS ORDERED: LACTATED RINGER'S 1000 ML IV (23:45)
[2017-08-26] MEDS ORDERED: SODIUM CHLORID 0.9% 500 ML IV (23:45)
[2017-08-27] MEDS: cefTAZidime INJ 2,000 MG in SODIUM CHLORIDE 0.9% INJ 100 ML IV ×3 (01:18→17:31)
[2017-08-27 01:29] LABS: APTT (PATIENT) 53.8 SEC (24.3-30.1)
[2017-08-27] MEDS: LEVOTHYROXINE SODIUM 125 MCG TAB PO (05:37)
[2017-08-27] MEDS: DOCUSATE SODIUM 100 MG CAP PO ×2 (07:41→21:00)
[2017-08-27] MEDS: DIVALPROEX SODIUM E.R. 250 MG TAB PO ×2 (07:43→20:59)
[2017-08-27] MEDS: guaiFENesin E.R. 600 MG TAB PO ×2 (07:43→21:00)
[2017-08-27 09:08] LABS: HEMATOCRIT 31.4 % (39.0-51.0); HEMOGLOBIN 10.5 GM/DL (13.0-17.0); MEAN CELL VOLUME 89.7 FL (80.0-100.0); MEAN CORPUSCULAR HEMOGLOBIN 29.9 PG (27.0-34.0); MEAN CORPUSCULAR HGB CONC 33.3 % (32.0-36.0); MEAN PLATELET VOLUME 7.1 FL (7.0-11.0); PLATELET COUNT 514 TH/MM3 (150-450); RED CELL DISTRIBUTION WIDTH 15.7 % (11.6-17.2); REVIEW FLAG FINAL
[2017-08-27] MEDS: VANCOMYCIN INJ 1,750 MG in SODIUM CHLORID 0.9% 500 ML INJ 500 ML IV (15:48)
[2017-08-27 19:50] LABS: HEMATOCRIT 31.6 % (39.0-51.0); HEMOGLOBIN 10.6 GM/DL (13.0-17.0); MEAN CELL VOLUME 89.4 FL (80.0-100.0); MEAN CORPUSCULAR HEMOGLOBIN 29.8 PG (27.0-34.0); MEAN CORPUSCULAR HGB CONC 33.4 % (32.0-36.0); MEAN PLATELET VOLUME 6.9 FL (7.0-11.0); PLATELET COUNT 519 TH/MM3 (150-450); RED BLOOD COUNT 3.54 MIL/MM3 (4.50-5.90); RED CELL DISTRIBUTION WIDTH 16.1 % (11.6-17.2); REVIEW FLAG FINAL; WHITE BLOOD COUNT 5.9 TH/MM3 (4.0-11.0)
[2017-08-27] MEDS: HEPARIN-D5W 25,000 U/250 ML 250 ML IV (19:55)
[2017-08-27 19:57] LABS: APTT (PATIENT) 29.7 SEC (24.3-30.1); INTERNATIONAL NORMALIZED RATIO 1.1 RATIO; PROTHROMBIN TIME - PATIENT 11.5 SEC (9.8-11.6)
[2017-08-27] MEDS: TEMAZEPAM 15 MG CAP PO (22:52)
[2017-08-27] MEDS: ACETAMINOPHEN/HYDROcodone 325 MG/5 MG TAB PO (22:54)
[2017-08-28 02:04] LABS: APTT (PATIENT) 52.5 SEC (24.3-30.1)
[2017-08-28 02:21] LABS: CREATININE 0.69 MG/DL (0.60-1.30); GLOMERULAR FILTRATION RATE 112 ML/MIN (>89)
[2017-08-28] MEDS: ACETAMINOPHEN/HYDROcodone 325 MG/5 MG TAB PO (02:45)
[2017-08-28] MEDS: cefTAZidime INJ 2,000 MG in SODIUM CHLORIDE 0.9% INJ 100 ML IV ×3 (02:46→16:56)
[2017-08-28] MEDS: LEVOTHYROXINE SODIUM 125 MCG TAB PO (05:57)
[2017-08-28] MEDS: DIVALPROEX SODIUM E.R. 250 MG TAB PO ×2 (07:10→20:41)
[2017-08-28] MEDS: guaiFENesin E.R. 600 MG TAB PO ×2 (07:11→20:41)
[2017-08-28] MEDS: DOCUSATE SODIUM 100 MG CAP PO ×2 (07:11→20:41)
[2017-08-28] MEDS: BUPIVACAINE/EPINEPHRINE 0.5% PF 10 ML VIAL (07:16)
[2017-08-28] MEDS: LIDOCAINE 1%/EPINEPHrine 1:100,000 SOLN 50 ML VIAL (07:17)
[2017-08-28] MEDS: THROMBIN (TOPICAL) 5,000 UNIT VIAL (08:40)
[2017-08-28] MEDS: GELFOAM SIZE 100 (08:40)
[2017-08-28] MEDS: GENTAMICIN SULFATE 80 MG/2 ML VIAL (08:40)
[2017-08-28] MEDS ORDERED: DO NOT ADM ANY ANTICOAGULANT DRUGS (09:30)
[2017-08-28 11:26] LABS: HEMATOCRIT 29.2 % (39.0-51.0); HEMOGLOBIN 9.8 GM/DL (13.0-17.0); MEAN CELL VOLUME 89.9 FL (80.0-100.0); MEAN CORPUSCULAR HEMOGLOBIN 30.2 PG (27.0-34.0); MEAN CORPUSCULAR HGB CONC 33.6 % (32.0-36.0); MEAN PLATELET VOLUME 6.7 FL (7.0-11.0); PLATELET COUNT 492 TH/MM3 (150-450); RED BLOOD COUNT 3.25 MIL/MM3 (4.50-5.90); RED CELL DISTRIBUTION WIDTH 15.7 % (11.6-17.2); REVIEW FLAG FINAL; WHITE BLOOD COUNT 5.4 TH/MM3 (4.0-11.0)
[2017-08-28 11:32] LABS: APTT (PATIENT) 28.9 SEC (24.3-30.1); INTERNATIONAL NORMALIZED RATIO 1.1 RATIO; PROTHROMBIN TIME - PATIENT 11.4 SEC (9.8-11.6)
[2017-08-28] MEDS: VANCOMYCIN INJ 1,500 MG in SODIUM CHLORID 0.9% 500 ML INJ 500 ML IV (11:35)
[2017-08-28] MEDS: DEXAMETHASONE SOD PHOS 4 MG/ML VIAL IV (12:00)
[2017-08-28] MEDS: LIDOCAINE HCL 1% PF 5 ML SYRINGE OTHER (12:00)
[2017-08-28] MEDS: ePHEDrine/NS 25 MG/5 ML SYRINGE IV (12:00)
[2017-08-28] MEDS: NEOSTIGMINE 5 MG/5 ML SYRINGE IV PUSH (12:00)
[2017-08-28] MEDS: GLYCOPYRROLATE 1 MG/5 ML SYRINGE IV PUSH (12:00)
[2017-08-28] MEDS: PROPOFOL 200 MG/20 ML AMP IV (12:00)
[2017-08-28] MEDS: PHENYLEPH/NS 1000 MCG/10 ML SYR IV (12:00)
[2017-08-28] MEDS: ONDANSETRON HCL 4 MG/2 ML VIAL IV PUSH (12:00)
[2017-08-28] MEDS: ROCURONIUM INJ 50 MG/5 ML SYRINGE IV PUSH (12:00)
[2017-08-28] MEDS: HEPARIN-D5W 25,000 U/250 ML 250 ML IV (12:37)
[2017-08-28 17:40] LABS: APTT (PATIENT) 43.6 SEC (24.3-30.1)
[2017-08-28] MEDS: ACETAMINOPHEN/HYDROcodone 325 MG/10 MG TAB PO (20:49)
[2017-08-28 23:34] LABS: APTT (PATIENT) 52.7 SEC (24.3-30.1)
[2017-08-29] MEDS: VANCOMYCIN INJ 1,500 MG in SODIUM CHLORID 0.9% 500 ML INJ 500 ML IV ×3 (00:33→22:56)
[2017-08-29] MEDS: HEPARIN-D5W 25,000 U/250 ML 250 ML IV (00:34)
[2017-08-29] MEDS: cefTAZidime INJ 2,000 MG in SODIUM CHLORIDE 0.9% INJ 100 ML IV ×3 (04:17→18:29)
[2017-08-29] MEDS: LEVOTHYROXINE SODIUM 125 MCG TAB PO (05:00)
[2017-08-29 05:29] LABS: APTT (PATIENT) 65.6 SEC (24.3-30.1); MEAN CELL VOLUME 90.8 FL (80.0-100.0); MEAN CORPUSCULAR HEMOGLOBIN 29.7 PG (27.0-34.0); MEAN CORPUSCULAR HGB CONC 32.7 % (32.0-36.0); MEAN PLATELET VOLUME 6.8 FL (7.0-11.0); PLATELET COUNT 339 TH/MM3 (150-450); RED BLOOD COUNT 2.28 MIL/MM3 (4.50-5.90); RED CELL DISTRIBUTION WIDTH 15.6 % (11.6-17.2)
[2017-08-29 05:30] LABS: REVIEW FLAG FINAL
[2017-08-29 05:34] LABS: HEMATOCRIT 20.7 % (39.0-51.0); HEMOGLOBIN 6.8 GM/DL (13.0-17.0)
[2017-08-29] MEDS: DIVALPROEX SODIUM E.R. 250 MG TAB PO ×2 (09:30→21:00)
[2017-08-29] MEDS ORDERED: SODIUM CHLOR 0.9% 250 ML INJ 250 ML IV (09:30)
[2017-08-29] MEDS: guaiFENesin E.R. 600 MG TAB PO ×2 (09:30→21:00)
[2017-08-29] MEDS ORDERED: FUROSEMIDE 20 MG/2 ML VIAL IV PUSH (11:00)
[2017-08-29] MEDS: PHARMACY ORDERED LAB (11:45)
[2017-08-29 13:21] LABS: VANCOMYCIN TROUGH 15.3 MCG/ML (5.0-10.0)
[2017-08-29 15:18] LABS: HEMATOCRIT 29.1 % (39.0-51.0); REVIEW FLAG FINAL
[2017-08-29 15:18] LABS: HEMOGLOBIN 9.4 GM/DL (13.0-17.0)
[2017-08-29] MEDS: MAGNESIUM HYDROXIDE SUSP 30 ML CUP PO (16:00)
[2017-08-29 16:16] LABS: BILIRUBIN, URINE NEG (NEG); BLOOD, URINE NEG (NEG); COMMENT (UR) CULT NOT INDICATED; CULTURE IF INDICATED CULT NOT INDICATED; GLUCOSE,URINE NEG (NEG); HYALINE CAST, URINE 2 /lpf (RARE); KETONE, URINE TRACE mg/dL (NEG); MUCUS URINE FEW /lpf (OCC); NITRITE,URINE NEG (NEG); SQUAMOUS EPITHELIAL CELL URINE <1 /hpf (0-5); URINE COLOR YELLOW (YELLW/STRAW); URINE LEUKOCYTE ESTERASE NEG (NEG)
[2017-08-29] MEDS: DOCUSATE SODIUM 100 MG CAP PO (21:00)
[2017-08-29] MEDS: ACETAMINOPHEN/HYDROcodone 325 MG/10 MG TAB PO (22:56)
[2017-08-30] MEDS: cefTAZidime INJ 2,000 MG in SODIUM CHLORIDE 0.9% INJ 100 ML IV ×2 (02:13→09:59)
[2017-08-30] MEDS: LEVOTHYROXINE SODIUM 125 MCG TAB PO (05:43)
[2017-08-30 07:32] LABS: HEMATOCRIT 28.1 % (39.0-51.0); HEMOGLOBIN 9.1 GM/DL (13.0-17.0); MEAN CELL VOLUME 90.6 FL (80.0-100.0); MEAN CORPUSCULAR HEMOGLOBIN 29.4 PG (27.0-34.0); MEAN CORPUSCULAR HGB CONC 32.4 % (32.0-36.0); PLATELET COUNT 458 TH/MM3 (150-450); REVIEW FLAG FINAL; WHITE BLOOD COUNT 4.9 TH/MM3 (4.0-11.0)
[2017-08-30 08:02] LABS: CREATININE 0.73 MG/DL (0.60-1.30); GLOMERULAR FILTRATION RATE 105 ML/MIN (>89)
[2017-08-30] MEDS: DOCUSATE SODIUM 100 MG CAP PO ×2 (09:00→21:00)
[2017-08-30] MEDS: guaiFENesin E.R. 600 MG TAB PO ×2 (09:56→21:47)
[2017-08-30] MEDS: DIVALPROEX SODIUM E.R. 250 MG TAB PO ×2 (09:56→21:47)
[2017-08-30] MEDS: ACETAMINOPHEN/HYDROcodone 325 MG/10 MG TAB PO (10:57)
[2017-08-30] MEDS: VANCOMYCIN INJ 1,500 MG in SODIUM CHLORID 0.9% 500 ML INJ 500 ML IV ×2 (12:15→23:42)
[2017-08-30] MEDS: RIVAROXABAN 15 MG TAB PO (21:00)
[2017-08-30] MEDS: FAMOTIDINE 20 MG TAB PO (21:47)
[2017-08-31] MEDS: ACETAMINOPHEN/HYDROcodone 325 MG/10 MG TAB PO ×2 (00:40→22:05)
[2017-08-31] MEDS: LEVOTHYROXINE SODIUM 125 MCG TAB PO (06:24)
[2017-08-31 07:30] LABS: HEMATOCRIT 28.8 % (39.0-51.0); HEMOGLOBIN 9.4 GM/DL (13.0-17.0); MEAN CELL VOLUME 90.3 FL (80.0-100.0); MEAN CORPUSCULAR HEMOGLOBIN 29.6 PG (27.0-34.0); MEAN CORPUSCULAR HGB CONC 32.8 % (32.0-36.0); MEAN PLATELET VOLUME 7.1 FL (7.0-11.0); PLATELET COUNT 454 TH/MM3 (150-450); RED BLOOD COUNT 3.19 MIL/MM3 (4.50-5.90); RED CELL DISTRIBUTION WIDTH 15.8 % (11.6-17.2); REVIEW FLAG FINAL; WHITE BLOOD COUNT 5.9 TH/MM3 (4.0-11.0)
[2017-08-31 07:58] LABS: CREATININE 0.77 MG/DL (0.60-1.30); GLOMERULAR FILTRATION RATE 99 ML/MIN (>89)
[2017-08-31] MEDS: guaiFENesin E.R. 600 MG TAB PO ×2 (08:21→21:55)
[2017-08-31] MEDS: DOCUSATE SODIUM 100 MG CAP PO ×2 (08:21→21:00)
[2017-08-31] MEDS: FAMOTIDINE 20 MG TAB PO ×2 (08:21→21:55)
[2017-08-31] MEDS: RIVAROXABAN 15 MG TAB PO ×2 (08:21→21:55)
[2017-08-31] MEDS: DIVALPROEX SODIUM E.R. 250 MG TAB PO ×2 (08:22→21:55)
[2017-08-31] MEDS: PHARMACY ORDERED LAB (11:45)
[2017-08-31] MEDS: VANCOMYCIN INJ 1,500 MG in SODIUM CHLORID 0.9% 500 ML INJ 500 ML IV (12:09)
[2017-08-31 12:44] LABS: VANCOMYCIN TROUGH 21.6 MCG/ML (5.0-10.0)
[2017-09-01] MEDS: TEMAZEPAM 15 MG CAP PO ×2 (01:27→22:41)
[2017-09-01] MEDS: LEVOTHYROXINE SODIUM 125 MCG TAB PO (06:37)
[2017-09-01 07:22] LABS: HEMATOCRIT 30.5 % (39.0-51.0); HEMOGLOBIN 10.1 GM/DL (13.0-17.0); MEAN CELL VOLUME 89.8 FL (80.0-100.0); MEAN CORPUSCULAR HEMOGLOBIN 29.8 PG (27.0-34.0); MEAN CORPUSCULAR HGB CONC 33.1 % (32.0-36.0); MEAN PLATELET VOLUME 7.2 FL (7.0-11.0); PLATELET COUNT 401 TH/MM3 (150-450); RED CELL DISTRIBUTION WIDTH 16.2 % (11.6-17.2); REVIEW FLAG FINAL; WHITE BLOOD COUNT 4.8 TH/MM3 (4.0-11.0)
[2017-09-01 08:42] LABS: ALBUMIN 2.5 GM/DL (3.4-5.0); ALT (GPT) 9 U/L (12-78); ANION GAP 8 MEQ/L (5-15); AST (GOT) 23 U/L (15-37); BICARBONATE 30.5 MEQ/L (21.0-32.0); BLOOD UREA NITROGEN 10 MG/DL (7-18); CALCIUM 8.7 MG/DL (8.5-10.1); CHLORIDE 101 MEQ/L (98-107); CREATININE 0.73 MG/DL (0.60-1.30); GLOMERULAR FILTRATION RATE 105 ML/MIN (>89); GLUCOSE,RANDOM 73 MG/DL (74-106); POTASSIUM 3.8 MEQ/L (3.5-5.1); SODIUM (NA) 139 MEQ/L (136-145)
[2017-09-01 08:44] LABS: ALKALINE PHOSPHATASE 44 U/L (45-117); RANDOM VANCOMYCIN 16.9 COMMENT; TOTAL BILIRUBIN ADULT 0.2 MG/DL (0.2-1.0); TOTAL PROTEIN 7.4 GM/DL (6.4-8.2)
[2017-09-01] MEDS: DOCUSATE SODIUM 100 MG CAP PO ×2 (09:00→22:43)
[2017-09-01] MEDS: DIVALPROEX SODIUM E.R. 250 MG TAB PO ×2 (09:16→22:43)
[2017-09-01] MEDS: FAMOTIDINE 20 MG TAB PO ×2 (09:16→22:41)
[2017-09-01] MEDS: guaiFENesin E.R. 600 MG TAB PO ×2 (09:16→22:43)
[2017-09-01] MEDS: RIVAROXABAN 15 MG TAB PO ×2 (09:16→22:43)
[2017-09-01] MEDS: VANCOMYCIN INJ 1,500 MG in SODIUM CHLORID 0.9% 500 ML INJ 500 ML IV (12:15)
[2017-09-01] MEDS: ACETAMINOPHEN/HYDROcodone 325 MG/10 MG TAB PO (22:42)
[2017-09-02] MEDS: LEVOTHYROXINE SODIUM 125 MCG TAB PO (05:15)
[2017-09-02 07:54] LABS: HEMATOCRIT 31.8 % (39.0-51.0); HEMOGLOBIN 10.5 GM/DL (13.0-17.0); MEAN CELL VOLUME 90.4 FL (80.0-100.0); MEAN CORPUSCULAR HEMOGLOBIN 29.9 PG (27.0-34.0); MEAN CORPUSCULAR HGB CONC 33.1 % (32.0-36.0); MEAN PLATELET VOLUME 7.2 FL (7.0-11.0); PLATELET COUNT 466 TH/MM3 (150-450); RED BLOOD COUNT 3.51 MIL/MM3 (4.50-5.90); RED CELL DISTRIBUTION WIDTH 16.2 % (11.6-17.2); REVIEW FLAG FINAL; WHITE BLOOD COUNT 5.3 TH/MM3 (4.0-11.0)
[2017-09-02] MEDS: RIVAROXABAN 15 MG TAB PO (08:59)
[2017-09-02] MEDS: FAMOTIDINE 20 MG TAB PO (09:00)
[2017-09-02] MEDS: DOCUSATE SODIUM 100 MG CAP PO (09:00)
[2017-09-02] MEDS: guaiFENesin E.R. 600 MG TAB PO (09:00)
[2017-09-02] MEDS: DIVALPROEX SODIUM E.R. 250 MG TAB PO (09:01)
[2017-09-02] MEDS: ACETAMINOPHEN/HYDROcodone 325 MG/5 MG TAB PO (09:23)
[2017-09-02] MEDS: VANCOMYCIN INJ 1,500 MG in SODIUM CHLORID 0.9% 500 ML INJ 500 ML IV ×2 (12:53→14:12)
[2017-09-02] MEDS ORDERED: SODIUM CHLORIDE 0.9% FLUSH 10 ML FLUSH IV FLUSH (15:30)
[2017-09-02] MEDS: DAPTOMYCIN IV (17:21)
[2017-09-02] MEDS: SODIUM CHLORIDE 0.9% IV (17:21)
[2017-09-02 17:31] LABS: CREATINE KINASE 276 U/L (39-308)
[2017-09-03] MEDS ORDERED: SODIUM CHLORIDE 0.9% FLUSH 10 ML FLUSH IV FLUSH (09:00)
[2017-09-04] MEDS ORDERED: PHARMACY ORDERED LAB (17:45)
== END 2017-09-02 22:27 | disposition home health service (06) | DRG 856 ==
LOC: N05B 15:20
PROC: 0K9N3ZX Drainage of Right Hip Muscle, Percutaneous Approach, Diagnostic (ICD-10-PCS; principal; 2017-08-28 08:00)
PROC: 0JB70ZZ Excision of Back Subcutaneous Tissue and Fascia, Open Approach (ICD-10-PCS; 2017-08-28 08:00)
DX: T81.4XXA Infection following a procedure, initial encounter (principal); K68.12 Psoas muscle abscess; I82.411 Acute embolism and thrombosis of right femoral vein; T81.31XA Disruption of external operation (surgical) wound, not elsewhere classified, initial encounter; I82.433 Acute embolism and thrombosis of popliteal vein, bilateral; I82.4Z3 Acute embolism and thrombosis of unspecified deep veins of distal lower extremity, bilateral; G40.909 Epilepsy, unspecified, not intractable, without status epilepticus; E78.5 Hyperlipidemia, unspecified; M19.90 Unspecified osteoarthritis, unspecified site; M54.5 Low back pain; G89.29 Other chronic pain; E03.9 Hypothyroidism, unspecified; I25.10 Atherosclerotic heart disease of native coronary artery without angina pectoris; I10 Essential (primary) hypertension; G47.33 Obstructive sleep apnea (adult) (pediatric); G25.81 Restless legs syndrome; Z96.653 Presence of artificial knee joint, bilateral; Z96.641 Presence of right artificial hip joint; M48.061 Spinal stenosis, lumbar region without neurogenic claudication; B95.62 Methicillin resistant Staphylococcus aureus infection as the cause of diseases classified elsewhere; D64.9 Anemia, unspecified; M51.36 Other intervertebral disc degeneration, lumbar region; M43.17 Spondylolisthesis, lumbosacral region; R53.1 Weakness; K57.90 Diverticulosis of intestine, part unspecified, without perforation or abscess without bleeding; Z86.14 Personal history of Methicillin resistant Staphylococcus aureus infection; Z86.73 Personal history of transient ischemic attack (TIA), and cerebral infarction without residual deficits; I25.2 Old myocardial infarction; Z85.828 Personal history of other malignant neoplasm of skin; Z87.891 Personal history of nicotine dependence
CPT/HCPCS: 10022; 36569; 71045; 72157; 72158; 74177; 76937; 77012; 80053; 80202; 81001; 82272; 82550; 82565; 85014; 85018; 85025; 85027; 85610; 85730; 86140; 86403; 86850; 86900; 86901; 86920; 87015; 87040; 87070; 87102; 87116; 87147; 87186; 87205; 87206; 93970; 94150; 97110-GP; 97116-GP; 97163-GP; 99152